=== PATIENT | male | born 1975 | race Caucasian/White ===

== ENCOUNTER 2016-04-24 16:36 | Emergency (ER) | payer BC ==
[~2016-04-24 16:36] MED LIST: AMLO10TA2 PO; BISO5TAB5 PO; CIPR500T89 PO; ENAL10TA2 PO; ENAL5TAB PO; FLAG500T PO; FURO1TAB15 PO; FURO20TA2 PO; JANU100T PO; LASI20TA PO; LORT5TAB PO; METF1000 PO; METF500T PO; NORCOTAB PO; SERT-141 PO; TYLE500T78 PO; VALS1TAB47 PO
[2016-04-24] MEDS ORDERED: fentaNYL 100 MCG/2 ML INJECTION (J3010) As Ordered ONE (18:10)
[2016-04-24 18:21] LABS: BASO % 0.5 % (0.0-1.0); EOS # 0.2 K/mm3 (0.0-0.50); EOS % 2.2 % (0.0-3.0); LARGE UNSTAINED CELL # 0.2 K/mm3 (0.0-0.4); LARGE UNSTAINED CELL % 1.9 % (0.0-4.0); LYMPH # 1.5 K/mm3 (1.5-4.5); LYMPH % 14.4 % (24.0-44.0); MEAN CORPUSCULAR HEMOGLOBIN 29.3 pg (27.0-33.0); MEAN CORPUSCULAR HGB CONC 32.7 g/dl (32.0-36.5); MEAN CORPUSCULAR VOLUME 89.3 fl (80.0-96.0); MONO # 0.6 K/mm3 (0.0-0.8); MONO % 5.4 % (0.0-5.0); NEUTROPHILS # 8.1 K/mm3 (1.8-7.7); NEUTROPHILS % 75.6 % (36.0-66.0); PLATELET COUNT, AUTOMATED 327 k/mm3 (150-450); RED CELL DISTRIBUTION WIDTH 13.3 % (11.5-14.5); WHITE BLOOD COUNT 10.7 K/mm3 (4.0-10.0)
[2016-04-24 18:47] LABS: ALBUMIN 3.9 GM/DL (3.2-5.2); ALBUMIN/GLOBULIN RATIO 1.03 (1.00-1.93); ALKALINE PHOSPHATASE 58 U/L (45-117); ALT/SGPT 46 U/L (12-78); ANION GAP 8 MEQ/L (8-16); AST/SGOT 39 U/L (15-37); BILIRUBIN,DIRECT < 0.1 MG/DL (0.0-0.2); BILIRUBIN,TOTAL 0.3 MG/DL (0.2-1.0); BLOOD UREA NITROGEN 14 MG/DL (7-18); CALCIUM LEVEL 9.1 MG/DL (8.5-10.1); CARBON DIOXIDE LEVEL 28 MEQ/L (21-32); CHLORIDE LEVEL 103 MEQ/L (98-107); CREATININE FOR GFR 0.84 MG/DL (0.70-1.30); GLOMERULAR FILTRATION RATE > 60.0 (>60); GLUCOSE, FASTING 113 MG/DL (70-105); POTASSIUM SERUM 4.9 MEQ/L (3.5-5.1); SODIUM LEVEL 139 MEQ/L (136-145); TOTAL PROTEIN 7.7 GM/DL (6.4-8.2)
--- NOTE | 2016-04-24 20:01 | REP ---
Clinical: Hypertension and chest pain. Technique: PA and lateral. Comparison: 02/17/2016. Findings: Stable cardiomegaly is appreciated. Lung meng are clear without acute consolidation, effusion, or pneumothorax. Skeletal structures intact. Impression: Stable cardiomegaly. No acute pleuroparenchymal process identified. Signed by Julian Sandoval MD 04/24/2016 07:52 P
[2016-04-24] MEDS ORDERED: NORCO 5/325MG TABLET (BULK) As Ordered ONE (20:22)
--- NOTE | 2016-04-24 20:32 | EDDOCDS ---
Nurse's Notes [facility] Name: Elgin Alba Age: 41 yrs Sex: Male : 1975 Arrival Date: 04/24/2016 Time: 16:36 Bed 17 Private MD: Philly Whipple E Diagnosis: Umbilical hernia without obstruction or gangrene Presentation: 04/24 16:46 Presenting complaint: Patient states: sent here from his PMD for macerated intestines. srm had CT done today. symptoms of mid abdominal pain for 3-5 weeks. diarrhea no n/v. Adult Sepsis Screening: The patient does not have new or worsening altered mentation. Patient's respiratory rate is less than 22. Systolic blood pressure is greater than 100. Patient has a qSOFA score of 0- Negative Sepsis Screen. Suicide/Homicide risk assessment- the patient denies having any suicidal and/or homicidal ideations and does not present with any other emotional, behavioral or mental health complaints. 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 Transition of care: patient was received from a primary care office; dr whipple. 16:46 Method Of Arrival: Walkin/Carried/Asstd [facility] 16:46 Acuity: BRITTANY Level 3 [facility] 16:53 Presenting complaint: Patient states: incarcerated hernia. [facility] 16:56 Presenting complaint: had cereal bar and juice box 2 hours ago. [facility] Triage Assessment: 16:53 General: Appears in no apparent distress, Behavior is appropriate for age, cooperative. srm Pain: Pain currently is 8 out of 10 on a pain scale. 16:54 HIV screening NA for this visit Offered previously. srm Historical: - Allergies: Morphine (leg swelling); - Home Meds: 1. Sertraline 150mg daily (Last dose: 04/24/2016 10:30) 2. valsartan 160 mg oral tab once daily (Last dose: 04/24/2016 10:30) 3. amlodipine 10 mg Oral tab once daily (Last dose: 04/24/2016 10:30) 4. furosemide 80 mg Oral tab 2 times per day (Last dose: 04/23/2016 19:00) 5. Januvia 100 mg oral tab 1 tab once daily (Last dose: 04/24/2016 10:30) 6. fexofenadine 180 mg Oral tab 1 tab once daily (Last dose: 04/24/2016 10:30) 7. acetaminophen 500 mg Oral tbef 1,000 mg daily 8. bisoprolol fumarate 5 mg oral tab once daily (Last dose: 04/24/2016 10:30) 9. oxycodone-acetaminophen 5-325 mg Oral tab every 8 hours prn (Last dose: 04/23/2016 19:00) - PMHx: Diabetes - NIDDM: controlled; Hypertension; CHF; Umbilical hernia; - PSHx: Hernia repair; - Social history: Smoking status: Patient states was never smoker of tobacco. No barriers to communication noted, The patient speaks fluent [place], Speaks appropriately for age. - Family history: Not pertinent. - : The pt / caregiver states he / she is not on anticoagulants. Home medication list is obtained from the patient. - Exposure Risk Screening:: None identified. Screenin:06 Screening information is obtained from the patient. Fall risk: No risks identified. bcj Assistance ADL's: requires no assistance with activities of daily living. Abuse/DV Screen: The patient / caregiver reports he/she is: not in a situation that causes fear, pain or injury. Nutritional screening: No deficits noted. Advance Directives: Currently, there is no health care proxy. home support is adequate. Assessment: 18:06 General: Appears in no apparent distress, Behavior is appropriate for age, cooperative. bcj Pain: Location: umbilical area, right upper quadrant and left upper quadrant Pain currently is 7 out of 10 on a pain scale. Neurological: Level of Consciousness is awake, alert, Oriented to person, place, time. Cardiovascular: Capillary refill < 3 seconds. Respiratory: Airway is patent Respiratory effort is even, unlabored. GI: Abdomen is non- distended obese, Bowel sounds present X 4 quads. Abd is soft X 4 quads Abd is tender to palpation in abdomen diffusely Reports diarrhea, upper abdominal pain. Derm: Skin is pink, warm & dry. 20:29 General: Appears in no apparent distress, comfortable, Behavior is appropriate for age, nn1 cooperative. Neurological: Level of Consciousness is awake, alert, Oriented to person, place, time. Respiratory: Airway is patent Respiratory effort is even, unlabored. Derm: Skin is pink, warm & dry. Vital Signs: 16:38 BP 159 / 80; Pulse 97; Resp 18 S; Temp 98.0; Pulse Ox 99% on R/A; Weight 133.36 kg (R); dd6 Height 5 ft. 3 in. (160.02 cm) (R); 20:12 BP 143 / 79; Pulse 83; Resp 20; Temp 98.3(TE); Pulse Ox 96% on R/A; Pain 6/10; ls3 16:38 Body Mass Index 52.08 (133.36 kg, 160.02 cm) dd6 Vitals: 16:38 Log In Time: April 24, 2016 at 16:36. dd6 ED Course: 16:37 Patient visited by Tre Gonzalez PCA. dd6 16:37 Philly Whipple is Private Physician. dd6 16:37 Patient moved to Waiting dd6 16:39 Patient moved to Pre RCE dd6 16:47 Triage Initiated srm 17:09 Aylin Crow,RN is Primary Nurse. jb5 17:09 Patient moved to 17 jb5 17:40 Julia Chow FNP is PHCP. le 18:06 The patient / caregiver is instructed regarding the plan of care and ED course. Patient yoon has correct armband on for positive identification. Placed in gown. Bed in low position. Call light in reach. Side rails up X2. 18:06 Inserted peripheral IV: 20gauge IV in left antecubital area and blood collected. bcj Patient tolerated the procedure well. 18:08 Patient visited by Garrison Appiah, CIARA. bcj 18:16 Patient visited by Julia Chow FNP. le 18:16 Patient visited by Julia Chow FNP. le 18:46 Patient visited by Tim Noble PCA. jlf 19:10 Patient visited by Rene De La Torre PCA. jmv 19:10 EKG done. (by ED staff). Reviewed by Julia ARMANDO. jmv 19:53 Patient visited by Venus Sullivan RN. nn1 20:04 Chest, 2 View (pa\E\lat) Returned. EDMS 20:06 Chucky Boone MD is Referral Physician. le 20:13 Patient visited by Rhona Duarte PCA. ls3 20:20 [facility] [place] was scanned into [employer] and attached to record. zo 20:31 No procedures done that require assistance. nn1 Administered Medications: 18:14 Drug: NS 0.9% 1000 ml [sodium chloride 0.9 % injection syringe] Route: IV; Rate: 100 pml mL/hr; Site: left antecubital; 18:14 Drug: fentaNYL (PF) 50 mcg [fentanyl (PF) 50 mcg/mL injection solution (1 mL)] Route: pml IVP; Site: left antecubital; Order Results: Lab Order: Basic Metabolic Profile; SPEC'M 04/24/16 18:04 Test: GLUCOSE, FASTING; Value: 113; Range: 70-105; Abnormal: Above high normal; Units: MG/DL; Status: F Test: BLOOD UREA NITROGEN; Value: 14; Range: 7-18; Units: MG/DL; Status: F Test: CREATININE FOR GFR; Value: 0.84; Range: 0.70-1.30; Units: MG/DL; Status: F Test: GLOMERULAR FILTRATION RATE; Value: > 60.0; Range: >60; Status: F Test: SODIUM LEVEL; Value: 139; Range: 136-145; Units: MEQ/L; Status: F Test: POTASSIUM SERUM; Value: 4.9; Range: 3.5-5.1; Units: MEQ/L; Status: F Test: CHLORIDE LEVEL; Value: 103; Range: 98-107; Units: MEQ/L; Status: F Test: CARBON DIOXIDE LEVEL; Value: 28; Range: 21-32; Units: MEQ/L; Status: F Test: ANION GAP; Value: 8; Range: 8-16; Units: MEQ/L; Status: F Test: CALCIUM LEVEL; Value: 9.1; Range: 8.5-10.1; Units: MG/DL; Status: F Test Note: ; Units are mL/min/1.73 m2 Chronic Kidney Disease Staging per NKF: Stage I & II GFR >=60 Normal to Mildly Decreased Stage III GFR 30-59 Moderately Decreased Stage IV GFR 15-29 Severely Decreased Stage V GFR <15 Very Little GFR Left ESRD GFR <15 on QUALITY AUDIT REPRESENTATIVE Lab Order: CBC with Diff; SPEC'M 04/24/16 18:04 Test: WHITE BLOOD COUNT; Value: 10.7; Range: 4.0-10.0; Abnormal: Above high normal; Units: K/mm3; Status: F Test: RED BLOOD COUNT; Value: 4.34; Range: 4.30-6.10; Units: M/mm3; Status: F Test: HEMOGLOBIN; Value: 12.7; Range: 14.0-18.0; Abnormal: Below low normal; Units: g/dl; Status: F Test: HEMATOCRIT; Value: 38.8; Range: 42.0-52.0; Abnormal: Below low normal; Units: %; Status: F Test: MEAN CORPUSCULAR VOLUME; Value: 89.3; Range: 80.0-96.0; Units: fl; Status: F Test: MEAN CORPUSCULAR HEMOGLOBIN; Value: 29.3; Range: 27.0-33.0; Units: pg; Status: F Test: MEAN CORPUSCULAR HGB CONC; Value: 32.7; Range: 32.0-36.5; Units: g/dl; Status: F Test: RED CELL DISTRIBUTION WIDTH; Value: 13.3; Range: 11.5-14.5; Units: %; Status: F Test: PLATELET COUNT, AUTOMATED; Value: 327; Range: 150-450; Units: k/mm3; Status: F Test: NEUTROPHILS %; Value: 75.6; Range: 36.0-66.0; Abnormal: Above high normal; Units: %; Status: F Test: LYMPH %; Value: 14.4; Range: 24.0-44.0; Abnormal: Below low normal; Units: %; Status: F Test: MONO %; Value: 5.4; Range: 0.0-5.0; Abnormal: Above high normal; Units: %; Status: F Test: EOS %; Value: 2.2; Range: 0.0-3.0; Units: %; Status: F Test: BASO %; Value: 0.5; Range: 0.0-1.0; Units: %; Status: F Test: LARGE UNSTAINED CELL %; Value: 1.9; Range: 0.0-4.0; Units: %; Status: F Test: NEUTROPHILS #; Value: 8.1; Range: 1.8-7.7; Abnormal: Above high normal; Units: K/mm3; Status: F Test: LYMPH #; Value: 1.5; Range: 1.5-4.5; Units: K/mm3; Status: F Test: MONO #; Value: 0.6; Range: 0.0-0.8; Units: K/mm3; Status: F Test: EOS #; Value: 0.2; Range: 0.0-0.50; Units: K/mm3; Status: F Test: BASO #; Value: 0.0; Range: 0.0-0.2; Units: K/mm3; Status: F Test: LARGE UNSTAINED CELL #; Value: 0.2; Range: 0.0-0.4; Units: K/mm3; Status: F Lab Order: Lipase; SPEC'M 04/24/16 18:04 Test: LIPASE; Value: 1368; Range: 73-393; Abnormal: Above high normal; Units: U/L; Status: F Lab Order: Liver Profile; SPEC' 04/24/16 18:04 Test: AST/SGOT; Value: 39; Range: 15-37; Abnormal: Above high normal; Units: U/L; Status: F Test: ALT/SGPT; Value: 46; Range: 12-78; Units: U/L; Status: F Test: ALKALINE PHOSPHATASE; Value: 58; Range: 45-117; Units: U/L; Status: F Test: BILIRUBIN,TOTAL; Value: 0.3; Range: 0.2-1.0; Units: MG/DL; Status: F Test: BILIRUBIN,DIRECT; Value: < 0.1; Range: 0.0-0.2; Units: MG/DL; Status: F Test: TOTAL PROTEIN; Value: 7.7; Range: 6.4-8.2; Units: GM/DL; Status: F Test: ALBUMIN; Value: 3.9; Range: 3.2-5.2; Units: GM/DL; Status: F Test: ALBUMIN/GLOBULIN RATIO; Value: 1.03; Range: 1.00-1.93; Status: F Lab Order: Lactic Acid (Velarde tube on ice); SPEC'M 04/24/16 18:04 Test: LACTIC ACID LEVEL, LACTATE; Value: 2.0; Range: 0.4-2.0; Units: MMOL/L; Status: F Radiology Order: Chest, 2 View (pa\E\lat) Test: Chest, 2 View (pa\E\lat) REASON FOR EXAMINATION: hx HTN, CHF; Clinical: Hypertension and chest pain.; ; Technique: PA and lateral.; ; Comparison: 02/17/2016.; ; Findings:; Stable cardiomegaly is appreciated. Lung meng are clear without acute; consolidation, effusion, or pneumothorax. Skeletal structures intact.; ; Impression:; Stable cardiomegaly. No acute pleuroparenchymal process identified.; ; ; Signed by; Julian Sandoval MD 04/24/2016 07:52 P; Outcome: 20:06 Discharge ordered by Provider. le 20:30 Discharge Assessment: Patient awake, alert and oriented x 3. No cognitive and/or nn1 functional deficits noted. Patient verbalized understanding of disposition instructions. 20:31 Discharge Assessment: patient administered narcotics - yes. Pt provided with safe nn1 discharge. The following High Risk Discharge criteria are identified: None. Discharged to home ambulatory. Condition: good Condition: stable. Discharge instructions given to patient, Instructed on discharge instructions, follow up and referral plans. medication usage, no driving heavy equipment, Demonstrated understanding of instructions, medications, Pt was receptive of discharge instructions/ teaching. Prescriptions given X 1, Work note provided to patient. No special radiology studies were completed. Property :Personal belongings accompany Pt. 20:31 Patient left the ED. nn1 Signatures: Dispatcher [employer] EDGarrison Morales, RN Christie Kang RN RN Viviana Salinas, METAL LOADER METAL LOADER jb5 Nick Gandhi Lisa, PAPER GUILLOTINE OPERATOR PAPER GUILLOTINE OPERATOR Tre Lassiter, METAL LOADER METAL LOADER dd6 Aylin Crow,RN RN iTm Oropeza, METAL LOADER METAL LOADER Venus KumarRN RN nn1 Rhona Duarte, METAL LOADER METAL LOADER ls3 Rene De La Torre, METAL LOADER METAL LOADER jmv MTDD
--- NOTE | 2016-04-24 20:33 | EDDOCDS ---
Physician Documentation [facility] Name: Elgin Alba Age: 41 yrs Sex: Male : 1975 Arrival Date: 04/24/2016 Time: 16:36 Bed 17 Private MD: Philly Gamez E Disposition: 04/24/16 20:06 Discharged to Home/Self Care. Impression: Umbilical hernia without obstruction or gangrene. - Condition is Stable. - Discharge Instructions: Hernia. - Prescriptions for Bronson 5- 325 mg Oral Tablet - take 1 tablet by ORAL route every 6 hours As needed MDD: 4 tabs; 20 tablet. - Medication Reconciliation, Local Pharmacy Hours form. - Follow up: Chucky Boone MD; When: Call to arrange an appointment; Reason: Recheck today's complaints, Continuance of care. - Problem is an ongoing problem. - Symptoms are unchanged. - Notes: Call Dr Boone's office, on Wednesday, to schedule follow-up appointment Return to the ED for worsening pain, especially if vomiting or fever develops Historical: - Allergies: Morphine (leg swelling); - Home Meds: 1. Sertraline 150mg daily (Last dose: 04/24/2016 10:30) 2. valsartan 160 mg oral tab once daily (Last dose: 04/24/2016 10:30) 3. amlodipine 10 mg Oral tab once daily (Last dose: 04/24/2016 10:30) 4. furosemide 80 mg Oral tab 2 times per day (Last dose: 04/23/2016 19:00) 5. Januvia 100 mg oral tab 1 tab once daily (Last dose: 04/24/2016 10:30) 6. fexofenadine 180 mg Oral tab 1 tab once daily (Last dose: 04/24/2016 10:30) 7. acetaminophen 500 mg Oral tbef 1,000 mg daily 8. bisoprolol fumarate 5 mg oral tab once daily (Last dose: 04/24/2016 10:30) 9. oxycodone-acetaminophen 5-325 mg Oral tab every 8 hours prn (Last dose: 04/23/2016 19:00) - PMHx: Diabetes - NIDDM: controlled; Hypertension; CHF; Umbilical hernia; - PSHx: Hernia repair; - Social history: Smoking status: Patient states was never smoker of tobacco. No barriers to communication noted, The patient speaks fluent Dive[place], Speaks appropriately for age. - Family history: Not pertinent. - : The pt / caregiver states he / she is not on anticoagulants. Home medication list is obtained from the patient. - Exposure Risk Screening:: None identified. Vital Signs: 04/24 16:38 BP 159 / 80; Pulse 97; Resp 18 S; Temp 98.0; Pulse Ox 99% on R/A; Weight 133.36 kg / dd6 294.01 lbs (R); Height 5 ft. 3 in. (160.02 cm) (R); 20:12 BP 143 / 79; Pulse 83; Resp 20; Temp 98.3(TE); Pulse Ox 96% on R/A; Pain 6/10; ls3 16:38 Body Mass Index 52.08 (133.36 kg, 160.02 cm) dd6 MDM: 17:41 NS 0.9% 1000 ml IV at 100 mL/hr continuous ordered. le 17:41 IV Saline Lock ordered. le 17:41 Undress patient appropriately for examination ordered. le 17:42 Basic Metabolic Profile Ordered. EDMS 17:42 CBC with Diff Ordered. EDMS 17:42 Lipase Ordered. EDMS 17:42 Liver Profile Ordered. EDMS 17:42 Lactic Acid (Velarde tube on ice) Ordered. EDMS 17:42 NOTHING BY MOUTH+DIET ordered. EDMS 18:14 fentaNYL (PF) 50 mcg IVP once ordered. pml 18:38 CBC with Diff Reviewed. le 18:47 Lactic Acid (Velarde tube on ice) Reviewed. le 18:49 BED REQUEST+ADM ordered. EDMS 18:51 ECG WITH READING ER PHYS+CARDIAG ordered. EDMS 18:51 Basic Metabolic Profile Reviewed. le 18:51 Lipase Reviewed. le 18:51 Liver Profile Reviewed. le 18:52 Chest, 2 View (pa\E\lat) Ordered. EDMS 20:07 HYDROcodone-acetaminophen 4 pack- 5 mg-325 mg 1 packets PO Per package directions; le Dispense with patient. 1 po q4h prn for pain ordered. 20:18 Financial registration complete. zo 20:20 [facility] [place] Payment Agreement was scanned into [employer] and attached to record. zo Administered Medications: 18:14 Drug: NS 0.9% 1000 ml [sodium chloride 0.9 % injection syringe] Route: IV; Rate: 100 pml mL/hr; Site: left antecubital; 18:14 Drug: fentaNYL (PF) 50 mcg [fentanyl (PF) 50 mcg/mL injection solution (1 mL)] Route: pml IVP; Site: left antecubital; Signatures: Dispatcher [employer] Garrison Phoenix RN RN bcj Michelson, Staci, RN RN srm Olin, Zoeann zo Westcott, Lisa, Aylin Tena RN RN pml Nunez, Nikkole, RN RN nn1 The chart was reviewed and I authenticate all verbal orders and agree with the evaluation and treatment provided.Attachments: 20:20 [facility] Payment Agreement zo MTDD
--- NOTE | 2016-04-25 05:54 | ECGEPIP ---
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
--- NOTE | 2016-04-25 07:44 | ER ---
DATE OF CONSULTATION: 04/24/2016 Consult regarding possible incarcerated recurrent umbilical hernia. HISTORY OF PRESENT ILLNESS: Mr. Alba is a 41-year-old gentleman. He is morbidly obese; he has a body mass index (BMI) of 56. He was sent by his primary care doctor who he saw the day before. He was complaining about a month history of ongoing pain around his umbilicus. This is worse with movement, bending, lifting. He denies any associated nausea or vomiting. He is tolerating food. He is having some mild loose stools the past week or so. No fevers or chills reported. His primary care doctor ordered a CT scan of the abdomen and pelvis which was done at [facility] today. The radiologist reading this read it as an incarcerated, possible strangulated umbilical hernia; thus, his primary care doctor sent him to the emergency room department to be evaluated. I was called in with these findings. On talking to him, he reports the pain has been the same for the past month. No exacerbation of the pain recently. He actually feels good now, though he did get 100 mcg of Fentanyl, but he says he was on his way to work, he does not feel sick, and he was surprised that his doctor called him and told him that he needed an emergency surgery tonight. ALLERGIES: The patient reports problems with MORPHINE giving him bilateral leg swelling. HOME MEDICATIONS: - amlodipine 10 mg tablet daily - bisoprolol 5 mg tablet daily - furosemide 80 mg tablet twice a day - metformin 1000 mg by mouth twice a day - sertraline 50 mg by mouth nightly - Januvia 100 mg tablet daily - valsartan 160 mg by mouth nightly PAST MEDICAL HISTORY: Includes: 1. Congestive heart failure, diastolic dysfunction. 2. Morbid obesity. 3. Diabetes. 4. Hypertension. 5. Sleep apnea. The patient was tried on continuous positive airway pressure (CPAP) but the patient was not able to tolerate it. PAST SURGICAL HISTORY: Includes: Umbilical hernia repair with Dr. Henderson in May 2015 PHYSICAL EXAMINATION: The patient is seen initially sitting up on the bed, laying down, appears fairly comfortable. No acute distress. He is pleasant and cooperative. He does not appear to be in any acute distress nor any discomfort. As mentioned, the patient is morbidly obese. Skin is warm and dry. Normocephalic, atraumatic. [place] palpebral conjunctivae. Anicteric sclerae. Lips appear moist. Neck is short but supple. No obvious jugular venous distension. Lungs sounds are clear to auscultation bilaterally. No wheezing appreciated. Heart: Rate and rhythm are regular with no murmurs. Abdomen is markedly rounded, soft, positive diastasis in the upper abdomen. Curvilinear incision on the superior portion of the umbilicus. Just above the umbilicus is an area of thinning, slight skin darkening where there is some hardening from most likely the presence of the mesh getting pushed out into the recurrent hernia. This is minimally tender on palpation. There are no signs of inflammation or induration. No rebound or guarding. Nontender anywhere else. Nontender at the epigastric area. Nontender at the right upper quadrant area. LABORATORY: White cell count is 10.7, hemoglobin 12.7, hematocrit 38.8, neutrophils 76%. Chemistry: Sodium 139, potassium 4.9, chloride is 103, CO2 of 28, BUN of 14, creatinine 0.84, glucose is 113, lactic acid 2. LFTs: Total bilirubin 0.3, direct bilirubin less than 0.1, AST 39, ALT 46, alkaline phosphatase 58, lipase is 1368, which is elevated. IMAGING STUDIES: A chest x-ray was done, showing no acute disease. He had a CT scan of the abdomen and pelvis done at [facility]; we only have the reading. I have no access to the images. This was read as a hernia involving soft tissue and small bowel, possible incarceration, possible strangulation. This does not correlate with the examination, and the appearance of the patient. I did review of CT scan of the abdomen and pelvis that was done at our hospital in February 2016 when he presented with diverticulitis. He did have a recurrent hernia containing dilated thickened small bowel loop in its lumen with surrounding fat stranding. I think more the surrounding fat stranding is from the mesh getting pushed out into the hernia wall rather than acute inflammation involving the bowel. IMPRESSION: Clinically incarcerated recurrent umbilical hernia. This contains bowel. I do not see any evidence for strangulation or incarceration of the bowel. I think the bowel itself is adhered probably to the mesh. Overall the patient does not look sick, does not look to have an incarcerated bowel into his chronic hernia. I do not think this needs an emergency repair. I did consult the patient that this needs to be repaired since it involves the bowel. I will see him in my clinic next week and schedule him for an elective hernia repair. I think this is best done, given the patient's body habitus, laparoscopically to enable us to place a wider mesh to the defect. The patient is in agreement with the plan. He will contact my clinic Wednesday, and I will see him next week in my clinic.
--- NOTE | 2016-04-26 21:32 | EDDOCDS ---
Physician Documentation [facility] Name: Elgin Alba Age: 41 yrs Sex: Male : 1975 Arrival Date: 04/24/2016 Time: 16:36 Bed 17 Private MD: Philly Gamez E Disposition: 04/24/16 20:06 Discharged to Home/Self Care. Impression: Umbilical hernia without obstruction or gangrene. - Condition is Stable. - Discharge Instructions: Hernia. - Prescriptions for [place] 5- 325 mg Oral Tablet - take 1 tablet by ORAL route every 6 hours As needed MDD: 4 tabs; 20 tablet. - Medication Reconciliation, Local Pharmacy Hours form. - Follow up: Chucky Boone MD; When: Call to arrange an appointment; Reason: Recheck today's complaints, Continuance of care. - Problem is an ongoing problem. - Symptoms are unchanged. - Notes: Call Dr Boone's office, on Wednesday, to schedule follow-up appointment Return to the ED for worsening pain, especially if vomiting or fever develops Historical: - Allergies: Morphine (leg swelling); - Home Meds: 1. Sertraline 150mg daily (Last dose: 04/24/2016 10:30) 2. valsartan 160 mg oral tab once daily (Last dose: 04/24/2016 10:30) 3. amlodipine 10 mg Oral tab once daily (Last dose: 04/24/2016 10:30) 4. furosemide 80 mg Oral tab 2 times per day (Last dose: 04/23/2016 19:00) 5. Januvia 100 mg oral tab 1 tab once daily (Last dose: 04/24/2016 10:30) 6. fexofenadine 180 mg Oral tab 1 tab once daily (Last dose: 04/24/2016 10:30) 7. acetaminophen 500 mg Oral tbef 1,000 mg daily 8. bisoprolol fumarate 5 mg oral tab once daily (Last dose: 04/24/2016 10:30) 9. oxycodone-acetaminophen 5-325 mg Oral tab every 8 hours prn (Last dose: 04/23/2016 19:00) - PMHx: Diabetes - NIDDM: controlled; Hypertension; CHF; Umbilical hernia; - PSHx: Hernia repair; - Social history: Smoking status: Patient states was never smoker of tobacco. No barriers to communication noted, The patient speaks fluent Amharic, Speaks appropriately for age. - Family history: Not pertinent. - : The pt / caregiver states he / she is not on anticoagulants. Home medication list is obtained from the patient. - Exposure Risk Screening:: None identified. Vital Signs: 04/24 16:38 BP 159 / 80; Pulse 97; Resp 18 S; Temp 98.0; Pulse Ox 99% on R/A; Weight 133.36 kg / dd6 294.01 lbs (R); Height 5 ft. 3 in. (160.02 cm) (R); 20:12 BP 143 / 79; Pulse 83; Resp 20; Temp 98.3(TE); Pulse Ox 96% on R/A; Pain 6/10; ls3 16:38 Body Mass Index 52.08 (133.36 kg, 160.02 cm) dd6 MDM: 17:41 NS 0.9% 1000 ml IV at 100 mL/hr continuous ordered. le 17:41 IV Saline Lock ordered. le 17:41 Undress patient appropriately for examination ordered. le 17:42 Basic Metabolic Profile Ordered. EDMS 17:42 CBC with Diff Ordered. EDMS 17:42 Lipase Ordered. EDMS 17:42 Liver Profile Ordered. EDMS 17:42 Lactic Acid (Velarde tube on ice) Ordered. EDMS 17:42 NOTHING BY MOUTH+DIET ordered. EDMS 18:14 fentaNYL (PF) 50 mcg IVP once ordered. pml 18:38 CBC with Diff Reviewed. le 18:47 Lactic Acid (Velarde tube on ice) Reviewed. le 18:49 BED REQUEST+ADM ordered. EDMS 18:51 ECG WITH READING ER PHYS+CARDIAG ordered. EDMS 18:51 Basic Metabolic Profile Reviewed. le 18:51 Lipase Reviewed. le 18:51 Liver Profile Reviewed. le 18:52 Chest, 2 View (pa\E\lat) Ordered. EDMS 20:07 HYDROcodone-acetaminophen 4 pack- 5 mg-325 mg 1 packets PO Per package directions; le Dispense with patient. 1 po q4h prn for pain ordered. 20:18 Financial registration complete. zo 20:20 [facility] [place] was scanned into [employer] and attached to record. zo 04/25 08:14 T-Sheet-- Draft Copy was scanned into [employer] and attached to record. [place] 12:08 ECG/EKG was scanned into [employer] and attached to record. gb 12:08 T-Sheet-- Draft Copy was scanned into [employer] and attached to record. gb Administered Medications: 04/24 18:14 Drug: NS 0.9% 1000 ml [sodium chloride 0.9 % injection syringe] Route: IV; Rate: 100 pml mL/hr; Site: left antecubital; 18:14 Drug: fentaNYL (PF) 50 mcg [fentanyl (PF) 50 mcg/mL injection solution (1 mL)] Route: pml IVP; Site: left antecubital; 20:20 Drug: HYDROcodone-acetaminophen 4 pack- 1 packets [hydrocodone 5 mg-acetaminophen 325 nn1 mg tablet (1 tabs)] {Co-Signature: dorota (Eric Bradley RN).} Route: PO; Signatures: Dispatcher [employer] EDGarrison Morales RN Chrisite Kang RN CIARA srm Stan, Fela, Reg Reg gb Nick Gandhi Lisa, HOME CARE SPECIALIST Aylin Griffin RN RN pml Nunez, Nikkole, RN RN nn1 Lela Aguirre [place] Eric raya The chart was reviewed and I authenticate all verbal orders and agree with the evaluation and treatment provided.Attachments: 20:20 [facility] Payment Agreement zo 12:08 ECG/EKG gb 12:08 T-Sheet-- Draft Copy gb Chart Complete MTDD
--- NOTE | 2016-04-26 21:32 | EDDOCDS ---
Physician Documentation [facility] Name: Elgin Alba Age: 41 yrs Sex: Male : 1975 Arrival Date: 04/24/2016 Time: 16:36 Bed 17 Private MD: Philly Gamez E Disposition: 04/24/16 20:06 Discharged to Home/Self Care. Impression: Umbilical hernia without obstruction or gangrene. - Condition is Stable. - Discharge Instructions: Hernia. - Prescriptions for [place] 5- 325 mg Oral Tablet - take 1 tablet by ORAL route every 6 hours As needed MDD: 4 tabs; 20 tablet. - Medication Reconciliation, Local Pharmacy Hours form. - Follow up: Chucky Boone MD; When: Call to arrange an appointment; Reason: Recheck today's complaints, Continuance of care. - Problem is an ongoing problem. - Symptoms are unchanged. - Notes: Call Dr Boone's office, on Wednesday, to schedule follow-up appointment Return to the ED for worsening pain, especially if vomiting or fever develops Historical: - Allergies: Morphine (leg swelling); - Home Meds: 1. Sertraline 150mg daily (Last dose: 04/24/2016 10:30) 2. valsartan 160 mg oral tab once daily (Last dose: 04/24/2016 10:30) 3. amlodipine 10 mg Oral tab once daily (Last dose: 04/24/2016 10:30) 4. furosemide 80 mg Oral tab 2 times per day (Last dose: 04/23/2016 19:00) 5. Januvia 100 mg oral tab 1 tab once daily (Last dose: 04/24/2016 10:30) 6. fexofenadine 180 mg Oral tab 1 tab once daily (Last dose: 04/24/2016 10:30) 7. acetaminophen 500 mg Oral tbef 1,000 mg daily 8. bisoprolol fumarate 5 mg oral tab once daily (Last dose: 04/24/2016 10:30) 9. oxycodone-acetaminophen 5-325 mg Oral tab every 8 hours prn (Last dose: 04/23/2016 19:00) - PMHx: Diabetes - NIDDM: controlled; Hypertension; CHF; Umbilical hernia; - PSHx: Hernia repair; - Social history: Smoking status: Patient states was never smoker of tobacco. No barriers to communication noted, The patient speaks fluent Bulgarian, Speaks appropriately for age. - Family history: Not pertinent. - : The pt / caregiver states he / she is not on anticoagulants. Home medication list is obtained from the patient. - Exposure Risk Screening:: None identified. Vital Signs: 04/24 16:38 BP 159 / 80; Pulse 97; Resp 18 S; Temp 98.0; Pulse Ox 99% on R/A; Weight 133.36 kg / dd6 294.01 lbs (R); Height 5 ft. 3 in. (160.02 cm) (R); 20:12 BP 143 / 79; Pulse 83; Resp 20; Temp 98.3(TE); Pulse Ox 96% on R/A; Pain 6/10; ls3 16:38 Body Mass Index 52.08 (133.36 kg, 160.02 cm) dd6 MDM: 17:41 NS 0.9% 1000 ml IV at 100 mL/hr continuous ordered. le 17:41 IV Saline Lock ordered. le 17:41 Undress patient appropriately for examination ordered. le 17:42 Basic Metabolic Profile Ordered. EDMS 17:42 CBC with Diff Ordered. EDMS 17:42 Lipase Ordered. EDMS 17:42 Liver Profile Ordered. EDMS 17:42 Lactic Acid (Velarde tube on ice) Ordered. EDMS 17:42 NOTHING BY MOUTH+DIET ordered. EDMS 18:14 fentaNYL (PF) 50 mcg IVP once ordered. pml 18:38 CBC with Diff Reviewed. le 18:47 Lactic Acid (Velarde tube on ice) Reviewed. le 18:49 BED REQUEST+ADM ordered. EDMS 18:51 ECG WITH READING ER PHYS+CARDIAG ordered. EDMS 18:51 Basic Metabolic Profile Reviewed. le 18:51 Lipase Reviewed. le 18:51 Liver Profile Reviewed. le 18:52 Chest, 2 View (pa\E\lat) Ordered. EDMS 20:07 HYDROcodone-acetaminophen 4 pack- 5 mg-325 mg 1 packets PO Per package directions; le Dispense with patient. 1 po q4h prn for pain ordered. 20:18 Financial registration complete. zo 20:20 [facility] [place] Payment Agreement was scanned into [employer] and attached to record. zo 04/25 08:14 T-Sheet-- Draft Copy was scanned into [employer] and attached to record. [facility] 12:08 ECG/EKG was scanned into [employer] and attached to record. gb 12:08 T-Sheet-- Draft Copy was scanned into [employer] and attached to record. gb Administered Medications: 04/24 18:14 Drug: NS 0.9% 1000 ml [sodium chloride 0.9 % injection syringe] Route: IV; Rate: 100 pml mL/hr; Site: left antecubital; 18:14 Drug: fentaNYL (PF) 50 mcg [fentanyl (PF) 50 mcg/mL injection solution (1 mL)] Route: pml IVP; Site: left antecubital; 20:20 Drug: HYDROcodone-acetaminophen 4 pack- 1 packets [hydrocodone 5 mg-acetaminophen 325 nn1 mg tablet (1 tabs)] {Co-Signature: dorota (Eric Bradley RN).} Route: PO; Signatures: Dispatcher [employer] EDGarrison Morales RN Christie Kang RN CIARA srm Stan, Fela, Reg Reg gb Nick Gandhi Lisa, PHYSICIANS AND SURGEONS Aylin Griffin RN RN pml Nunez, Nikkole, RN RN nn1 Lela Aguirre [facility] Eric raya The chart was reviewed and I authenticate all verbal orders and agree with the evaluation and treatment provided.Attachments: 20:20 [facility] Payment Agreement zo 12:08 ECG/EKG gb 12:08 T-Sheet-- Draft Copy gb Chart Complete MTDD
--- NOTE | 2016-04-26 21:32 | EDDOCDS ---
Nurse's Notes [facility] Name: Sebastian Mcmahon Age: 41 yrs Sex: Male : 1975 Arrival Date: 04/24/2016 Time: 16:36 Bed 17 Private MD: Philly Whipple E Diagnosis: Umbilical hernia without obstruction or gangrene Presentation: 04/24 16:46 Presenting complaint: Patient states: sent here from his PMD for macerated intestines. srm had CT done today. symptoms of mid abdominal pain for 3-5 weeks. diarrhea no n/v. Adult Sepsis Screening: The patient does not have new or worsening altered mentation. Patient's respiratory rate is less than 22. Systolic blood pressure is greater than 100. Patient has a qSOFA score of 0- Negative Sepsis Screen. Suicide/Homicide risk assessment- the patient denies having any suicidal and/or homicidal ideations and does not present with any other emotional, behavioral or mental health complaints. Status: Patient is not a family services manager or dependent. Transition of care: patient was received from a primary care office; dr whipple. 16:46 Method Of Arrival: Walkin/Carried/Asstd [facility] 16:46 Acuity: BRITTANY Level 3 [facility] 16:53 Presenting complaint: Patient states: incarcerated hernia. [facility] 16:56 Presenting complaint: had cereal bar and juice box 2 hours ago. [facility] Triage Assessment: 16:53 General: Appears in no apparent distress, Behavior is appropriate for age, cooperative. srm Pain: Pain currently is 8 out of 10 on a pain scale. 16:54 HIV screening NA for this visit Offered previously. srm Historical: - Allergies: Morphine (leg swelling); - Home Meds: 1. Sertraline 150mg daily (Last dose: 04/24/2016 10:30) 2. valsartan 160 mg oral tab once daily (Last dose: 04/24/2016 10:30) 3. amlodipine 10 mg Oral tab once daily (Last dose: 04/24/2016 10:30) 4. furosemide 80 mg Oral tab 2 times per day (Last dose: 04/23/2016 19:00) 5. Januvia 100 mg oral tab 1 tab once daily (Last dose: 04/24/2016 10:30) 6. fexofenadine 180 mg Oral tab 1 tab once daily (Last dose: 04/24/2016 10:30) 7. acetaminophen 500 mg Oral tbef 1,000 mg daily 8. bisoprolol fumarate 5 mg oral tab once daily (Last dose: 04/24/2016 10:30) 9. oxycodone-acetaminophen 5-325 mg Oral tab every 8 hours prn (Last dose: 04/23/2016 19:00) - PMHx: Diabetes - NIDDM: controlled; Hypertension; CHF; Umbilical hernia; - PSHx: Hernia repair; - Social history: Smoking status: Patient states was never smoker of tobacco. No barriers to communication noted, The patient speaks fluent Tunisian, Speaks appropriately for age. - Family history: Not pertinent. - : The pt / caregiver states he / she is not on anticoagulants. Home medication list is obtained from the patient. - Exposure Risk Screening:: None identified. Screenin:06 Screening information is obtained from the patient. Fall risk: No risks identified. bcj Assistance ADL's: requires no assistance with activities of daily living. Abuse/DV Screen: The patient / caregiver reports he/she is: not in a situation that causes fear, pain or injury. Nutritional screening: No deficits noted. Advance Directives: Currently, there is no health care proxy. home support is adequate. Assessment: 18:06 General: Appears in no apparent distress, Behavior is appropriate for age, cooperative. bcj Pain: Location: umbilical area, right upper quadrant and left upper quadrant Pain currently is 7 out of 10 on a pain scale. Neurological: Level of Consciousness is awake, alert, Oriented to person, place, time. Cardiovascular: Capillary refill < 3 seconds. Respiratory: Airway is patent Respiratory effort is even, unlabored. GI: Abdomen is non- distended obese, Bowel sounds present X 4 quads. Abd is soft X 4 quads Abd is tender to palpation in abdomen diffusely Reports diarrhea, upper abdominal pain. Derm: Skin is pink, warm & dry. 20:29 General: Appears in no apparent distress, comfortable, Behavior is appropriate for age, nn1 cooperative. Neurological: Level of Consciousness is awake, alert, Oriented to person, place, time. Respiratory: Airway is patent Respiratory effort is even, unlabored. Derm: Skin is pink, warm & dry. Vital Signs: 16:38 BP 159 / 80; Pulse 97; Resp 18 S; Temp 98.0; Pulse Ox 99% on R/A; Weight 133.36 kg (R); dd6 Height 5 ft. 3 in. (160.02 cm) (R); 20:12 BP 143 / 79; Pulse 83; Resp 20; Temp 98.3(TE); Pulse Ox 96% on R/A; Pain 6/10; ls3 16:38 Body Mass Index 52.08 (133.36 kg, 160.02 cm) dd6 Vitals: 16:38 Log In Time: April 24, 2016 at 16:36. dd6 ED Course: 16:37 Patient visited by Tre Gonzalez PCA. dd6 16:37 Philly Whipple is Private Physician. dd6 16:37 Patient moved to Waiting dd6 16:39 Patient moved to Pre RCE dd6 16:47 Triage Initiated srm 17:09 Aylin Crow,RN is Primary Nurse. jb5 17:09 Patient moved to 17 jb5 17:40 Julia Chow FNP is PHCP. le 18:06 The patient / caregiver is instructed regarding the plan of care and ED course. Patient yoon has correct armband on for positive identification. Placed in gown. Bed in low position. Call light in reach. Side rails up X2. 18:06 Inserted peripheral IV: 20gauge IV in left antecubital area and blood collected. bcj Patient tolerated the procedure well. 18:08 Patient visited by Garrison Appiah, CIARA. bcj 18:16 Patient visited by Julia Chow FNP. le 18:16 Patient visited by Julia Chow FNP. le 18:46 Patient visited by Tim Noble PCA. jlf 19:10 Patient visited by Rene De La Torre PCA. jmv 19:10 EKG done. (by ED staff). Reviewed by Julia ARMANDO. jmv 19:53 Patient visited by Venus Sullivan RN. nn1 20:04 Chest, 2 View (pa\E\lat) Returned. EDMS 20:06 Chucky Boone MD is Referral Physician. le 20:13 Patient visited by Rhona Duarte PCA. ls3 20:20 [facility] [place] Agreement was scanned into [employer] and attached to record. zo 20:31 No procedures done that require assistance. nn1 04/25 06:05 EKG-ADULT Returned. EDMS 08:14 T-Sheet-- Draft Copy was scanned into [employer] and attached to record. seh 12:08 ECG/EKG was scanned into [employer] and attached to record. gb 12:08 T-Sheet-- Draft Copy was scanned into [employer] and attached to record. gb Administered Medications: 04/24 18:14 Drug: NS 0.9% 1000 ml [sodium chloride 0.9 % injection syringe] Route: IV; Rate: 100 pml mL/hr; Site: left antecubital; 18:14 Drug: fentaNYL (PF) 50 mcg [fentanyl (PF) 50 mcg/mL injection solution (1 mL)] Route: pml IVP; Site: left antecubital; 20:20 Drug: HYDROcodone-acetaminophen 4 pack- 1 packets [hydrocodone 5 mg-acetaminophen 325 nn1 mg tablet (1 tabs)] {Co-Signature: dorota (Eric Bradley RN).} Route: PO; Order Results: Lab Order: Basic Metabolic Profile; SPEC'M 04/24/16 18:04 Test: GLUCOSE, FASTING; Value: 113; Range: 70-105; Abnormal: Above high normal; Units: MG/DL; Status: F Test: BLOOD UREA NITROGEN; Value: 14; Range: 7-18; Units: MG/DL; Status: F Test: CREATININE FOR GFR; Value: 0.84; Range: 0.70-1.30; Units: MG/DL; Status: F Test: GLOMERULAR FILTRATION RATE; Value: > 60.0; Range: >60; Status: F Test: SODIUM LEVEL; Value: 139; Range: 136-145; Units: MEQ/L; Status: F Test: POTASSIUM SERUM; Value: 4.9; Range: 3.5-5.1; Units: MEQ/L; Status: F Test: CHLORIDE LEVEL; Value: 103; Range: 98-107; Units: MEQ/L; Status: F Test: CARBON DIOXIDE LEVEL; Value: 28; Range: 21-32; Units: MEQ/L; Status: F Test: ANION GAP; Value: 8; Range: 8-16; Units: MEQ/L; Status: F Test: CALCIUM LEVEL; Value: 9.1; Range: 8.5-10.1; Units: MG/DL; Status: F Test Note: ; Units are mL/min/1.73 m2 Chronic Kidney Disease Staging per NKF: Stage I & II GFR >=60 Normal to Mildly Decreased Stage III GFR 30-59 Moderately Decreased Stage IV GFR 15-29 Severely Decreased Stage V GFR <15 Very Little GFR Left ESRD GFR <15 on CHIEF COOK Lab Order: CBC with Diff; SPEC'M 04/24/16 18:04 Test: WHITE BLOOD COUNT; Value: 10.7; Range: 4.0-10.0; Abnormal: Above high normal; Units: K/mm3; Status: F Test: RED BLOOD COUNT; Value: 4.34; Range: 4.30-6.10; Units: M/mm3; Status: F Test: HEMOGLOBIN; Value: 12.7; Range: 14.0-18.0; Abnormal: Below low normal; Units: g/dl; Status: F Test: HEMATOCRIT; Value: 38.8; Range: 42.0-52.0; Abnormal: Below low normal; Units: %; Status: F Test: MEAN CORPUSCULAR VOLUME; Value: 89.3; Range: 80.0-96.0; Units: fl; Status: F Test: MEAN CORPUSCULAR HEMOGLOBIN; Value: 29.3; Range: 27.0-33.0; Units: pg; Status: F Test: MEAN CORPUSCULAR HGB CONC; Value: 32.7; Range: 32.0-36.5; Units: g/dl; Status: F Test: RED CELL DISTRIBUTION WIDTH; Value: 13.3; Range: 11.5-14.5; Units: %; Status: F Test: PLATELET COUNT, AUTOMATED; Value: 327; Range: 150-450; Units: k/mm3; Status: F Test: NEUTROPHILS %; Value: 75.6; Range: 36.0-66.0; Abnormal: Above high normal; Units: %; Status: F Test: LYMPH %; Value: 14.4; Range: 24.0-44.0; Abnormal: Below low normal; Units: %; Status: F Test: MONO %; Value: 5.4; Range: 0.0-5.0; Abnormal: Above high normal; Units: %; Status: F Test: EOS %; Value: 2.2; Range: 0.0-3.0; Units: %; Status: F Test: BASO %; Value: 0.5; Range: 0.0-1.0; Units: %; Status: F Test: LARGE UNSTAINED CELL %; Value: 1.9; Range: 0.0-4.0; Units: %; Status: F Test: NEUTROPHILS #; Value: 8.1; Range: 1.8-7.7; Abnormal: Above high normal; Units: K/mm3; Status: F Test: LYMPH #; Value: 1.5; Range: 1.5-4.5; Units: K/mm3; Status: F Test: MONO #; Value: 0.6; Range: 0.0-0.8; Units: K/mm3; Status: F Test: EOS #; Value: 0.2; Range: 0.0-0.50; Units: K/mm3; Status: F Test: BASO #; Value: 0.0; Range: 0.0-0.2; Units: K/mm3; Status: F Test: LARGE UNSTAINED CELL #; Value: 0.2; Range: 0.0-0.4; Units: K/mm3; Status: F Lab Order: Lipase; SPEC'M 04/24/16 18:04 Test: LIPASE; Value: 1368; Range: 73-393; Abnormal: Above high normal; Units: U/L; Status: F Lab Order: Liver Profile; SPEC'M 04/24/16 18:04 Test: AST/SGOT; Value: 39; Range: 15-37; Abnormal: Above high normal; Units: U/L; Status: F Test: ALT/SGPT; Value: 46; Range: 12-78; Units: U/L; Status: F Test: ALKALINE PHOSPHATASE; Value: 58; Range: 45-117; Units: U/L; Status: F Test: BILIRUBIN,TOTAL; Value: 0.3; Range: 0.2-1.0; Units: MG/DL; Status: F Test: BILIRUBIN,DIRECT; Value: < 0.1; Range: 0.0-0.2; Units: MG/DL; Status: F Test: TOTAL PROTEIN; Value: 7.7; Range: 6.4-8.2; Units: GM/DL; Status: F Test: ALBUMIN; Value: 3.9; Range: 3.2-5.2; Units: GM/DL; Status: F Test: ALBUMIN/GLOBULIN RATIO; Value: 1.03; Range: 1.00-1.93; Status: F Lab Order: Lactic Acid (Velarde tube on ice); SPEC'M 04/24/16 18:04 Test: LACTIC ACID LEVEL, LACTATE; Value: 2.0; Range: 0.4-2.0; Units: MMOL/L; Status: F Radiology Order: EKG-ADULT Test: EKG-ADULT REASON FOR EXAMINATION: hx HTN, CHF; Stationary ECG Study; [facility] - ED; ; Test Date: 2016-04-24; Pat Name: SEBASTIAN MCMAHON Department:; Room: -; 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 Lung meng are clear without acute; consolidation, effusion, or pneumothorax. Skeletal structures intact.; ; Impression:; Stable cardiomegaly. No acute pleuroparenchymal process identified.; ; ; Signed by; Julian Sandoval MD 04/24/2016 07:52 P; Outcome: 20:06 Discharge ordered by Provider. le 20:30 Discharge Assessment: Patient awake, alert and oriented x 3. No cognitive and/or nn1 functional deficits noted. Patient verbalized understanding of disposition instructions. 20:31 Discharge Assessment: patient administered narcotics - yes. Pt provided with safe nn1 discharge. The following High Risk Discharge criteria are identified: None. Discharged to home ambulatory. Condition: good Condition: stable. Discharge instructions given to patient, Instructed on discharge instructions, follow up and referral plans. medication usage, no driving heavy equipment, Demonstrated understanding of instructions, medications, Pt was receptive of discharge instructions/ teaching. Prescriptions given X 1, Work note provided to patient. No special radiology studies were completed. Property :Personal belongings accompany Pt. 20:31 Patient left the ED. nn1 Signatures: Dispatcher [employer] EDMS Garrison Appiah, RN RN Christie Bailey, RN RN [facility] Stan, Fela, Reg Reg gb Viviana Pool, BRIM WELT SEWING MACHINE OPERATOR BRIM WELT SEWING MACHINE OPERATOR jb5 Nick Gandhi Lisa, SOX ANALYST SOX ANALYST Tre Lassiter, BRIM WELT SEWING MACHINE OPERATOR BRIM WELT SEWING MACHINE OPERATOR dd6 Aylin Crow,RN RN Tim Oropeza, BRIM WELT SEWING MACHINE OPERATOR BRIM WELT SEWING MACHINE OPERATOR jlf Venus SullivanRN RN nn1 Rhona Duarte, BRIM WELT SEWING MACHINE OPERATOR BRIM WELT SEWING MACHINE OPERATOR ls3 Lela Aguirre Jose, BRIM WELT SEWING MACHINE OPERATOR BRIM WELT SEWING MACHINE OPERATOR jmv Eric mendozab Chart Complete NICO
== END 2016-04-24 20:31 | disposition home or self-care (01) ==
LOC: M ED 16:36
DX: R11.2 Nausea with vomiting, unspecified (principal); E11.9 Type 2 diabetes mellitus without complications; I10 Essential (primary) hypertension; I50.20 Unspecified systolic (congestive) heart failure; K42.9 Umbilical hernia without obstruction or gangrene; Z79.84 Long term (current) use of oral hypoglycemic drugs; Z79.899 Other long term (current) drug therapy; Z88.8 Allergy status to other drugs, medicaments and biological substances
CPT/HCPCS: 36415; 71020; 80048; 80076; 83605; 83690; 85025; 93005; 96374; 99284; J3010

== ENCOUNTER 2016-05-20 06:59 | Day surgery (SDC) | payer BC ==
--- NOTE | 2016-05-12 12:59 | CR ---
DATE OF CONSULTATION: 05/12/2016 I was asked to see him for preoperative clearance for umbilical ventral hernia repair to be done on 05/20/[address] Boone with robotic-assisted laparoscopic procedure. Patient is 41 years of age, has had multiple medical problems since he started here seeing me, which has only been less than a year. He was in the hospital back on 02/17/2016 with acute diverticulitis. He had umbilical hernia repair laparoscopically by Dr. Henderson November of 2015, and now he is having another ventral hernia repair, umbilical hernia repair by Dr. Boone on 05/20/2016. He has been in considerable abdominal pain but has been relieved with Percocet. He has been moving his bowels well. He has not had any vomiting or projectile vomiting. He has multiple medical problems, including congestive heart failure mainly with diastolic dysfunction, diabetes. He has sleep apnea. He does wear continuous positive airway pressure (CPAP). He also has severe obesity, hypertension. His blood pressure has been well controlled with his medication and his A1c's have been in very good control with his diabetes as well as his heart failure; he has been euvolemic on his Lasix. He has not had any chest pain or chest pressure or shortness of breath. He has not had any diaphoresis. He has not had any claudication symptoms. His biggest complaint is the abdominal pain in the umbilical region. Again, he has been moving his bowels well. He has not had any symptoms of amaurosis fugax, upper or lower extremity numbness or tingling. No history of transient ischemic attack (TIA) or cerebrovascular accident (CVA). No history of myocardial infarction, and no history of any recent pneumonia. PAST MEDICAL HISTORY: Is significant for chronic diastolic heart failure, morbid obesity, diabetes mellitus, hypertension, sleep apnea. He also has hyperlipidemia. PAST SURGICAL HISTORY: Umbilical hernia repair by Dr. Henderson laparoscopically November 2015. Recent hospitalization back in 02/2016 for acute diverticulitis. Recent hospitalization for abdominal pain from the umbilical hernia. Patient was deemed appropriately to be discharged and will followup outpatient for laparoscopic surgery, which will be due on 05/20/2016. FAMILY HISTORY: On this patient is noncontributory. No premature coronary artery disease. Three sisters, oldest one had a CVA in her 50s. Father has diabetes, congestive heart failure, and hypertension. Mother had stent placed over the age of 65 for coronary artery disease (CAD) and hypertension, diabetes. Maternal grandmother due to myocardial infarction (NH), unknown age. ALLERGIES: He has an allergy to MORPHINE, actually causes edema, but he can take Percocet. MEDICATIONS: That he currently takes include the following, and these are updated list of medications and quite accurate up until today: - amlodipine 10 mg a day - bisoprolol 5 mg a day - fexofenadine 180 mg a day - a Lasix 80 mg twice a day - Januvia 100 mg a day - metformin 500 mg two twice a day - Percocet 5/325 mg every 6 hours as needed for pain - sertraline 100 mg a day - valsartan 160 mg a day SOCIAL HISTORY: He is . Negative for any smoking. Drinks two or three times a week on his days off, probably beer and vodka or sodas. No history of hepatitis, tuberculosis, HIV exposure, sexually transmitted disease, or intravenous (IV) drug use. REVIEW OF SYSTEMS: He has not had any constitutional symptoms such as fever, chills or night sweats, unexplained weight loss or weight gain. He has not had any epistaxis, rhinorrhea. He has not had any hoarseness. He has not had any sore throat. Cardiovascular (CV): Does have congestive heart failure. Also, hypertension, hyperlipidemia. No angina symptoms. No history of atrial fibrillation or other arrhythmias. No coronary artery disease, peripheral vascular disease, rheumatic heart disease. No increased shortness of breath, and no syncopal episodes. Respiratory: Denied any productive cough. No history of pulmonary embolism. Does have sleep apnea. Gastrointestinal (GI): Is having abdominal pain that has been pretty persistent since his hospitalization for his umbilical hernia. He has not had any projectile vomiting. Has been moving his bowels well. No change in bowel habits. Genitourinary: He denies any dysuria, frequency, hesitancy. No history of any kidney stones. No recent urinary tract infections. Musculoskeletal: No increased upper or lower extremity pain or discomfort. Neurologic: Denies any disorientation, dizziness, headache, lightheadedness, seizure, stroke, syncope, TIA, or tremor. Endocrine: Positive for diabetes. Negative for hypo- or hyperthyroidism. No polyphagia, polydipsia, or polyuria, and no heat or cold intolerance. PHYSICAL EXAM: Reveals a 41-year-old, morbidly obese male who does not appear to be in acute distress. Answers questions appropriately. Blood pressure is (BP) 152/88, pulse is 84, temperature is 96.8. Weight is 293. Oxygen saturation 95% on room air. Body mass index (BMI) 52.7. Head is normocephalic, atraumatic. Sclerae are nonicteric. Extraocular muscle movements are intact. Throat is without any erythema or exudate. Neck: Is without any jugular venous distention, adenopathy, or carotid bruits. Heart: S1, S2, without any new murmurs, rubs or gallops, or heaves, or thrills. Lung sounds: Were clear to auscultation without any wheezing, rales, or rhonchi. No adventitious sounds noted. Abdomen: Is nondistended but obese. Has umbilical hernia in place with tenderness around the umbilical hernia, which is slightly reducible, but quite a bit of pain and discomfort in the umbilical region. There is no rebound or guarding. There is no hepatic or splenic enlargement or pulsatile masses. Extremities: Are without any significant pretibial, ankle, or pedal edema. Neurological exam: Cranial nerves II-XII are intact. There are no gross deficits present on this patient. Tactile and position sense is intact, and there is no evidence of any weakness in the upper or lower extremities. Muscle strength is 5/5. EKG: Patient had EKG performed on 04/24/2016. Therefore, it is not repeated. He had sinus rhythm with left atrial enlargement. His rate was 83 beats per minute. There is no evidence of any left ventricular hypertrophy (LVH) or acute ST changes. IMPRESSION: Is a 41-year-old male to undergo robotic-assisted laparoscopic umbilical ventral hernia repair by Dr. Boone on 05/20/2016. Patient presents a moderate risk for surgery due to his morbid obesity, diabetes, and chronic congestive heart failure. Patient was told to use his CPAP and bring his CPAP with him for his obstructive sleep apnea. For his diabetes, he is going to hold his metformin 2 days prior to surgery, his Januvia 1 day prior to surgery. He will need to be on coverage in the hospital with basal insulin sliding scale to keep his blood sugars under control. Chronic diastolic heart failure. Was told to hold his Lasix the morning of surgery. He is taking 80 mg twice a day. He will take his bisoprolol 5 mg the morning of surgery and amlodipine 10 mg the morning of surgery. Hypertension. He will hold his valsartan the day before surgery. Up until then, he will continue to take it until the day before surgery. Anxiety disorder. Will take his sertraline the morning of surgery. All other medications will be held prior to surgery. If there are any questions, please do not hesitate to call me at [phone]. ADDENDUM: Patient underwent stress test on 05/23/[address] Bunn's office at [facility] due to congestive heart failure and for further evaluation and preoperative cardiology exam. Patient was found to be negative for any ischemia at maximal workload. He had some impaired functional aerobic capacity. He has morbid obesity. No exercise-induced arrhythmias were seen. Recommended risk factor modification and his left ventricular ejection fraction (LVEF) was greater than 50%; that was seen on the stress test, and this was done on 05/23/2015. Furthermore, the patient had an echocardiogram performed on his heart prior to the stress test that showed him to have some initial sinus tachycardia. He had moderate concentric left ventricular hypertrophy, normal left ventricular wall motion and wall thickness, normal left ventricular systolic function, left ventricular ejection fraction of 65%, some diastolic dysfunction grade 3 or grade 4 was seen, moderately severe left atrial dilatation, and this was prior to his stress test, which was performed in 05/2015. The echocardiogram was performed 04/22/2015. Addendum dictated: JORGE 05/12/2016 1508 Addendum transcribed: endy 05/12/2016 1538
[~2016-05-20] VITALS: Ht 157.5 cm; Wt 139.3 kg
[2016-05-20] MEDS ORDERED: LR 1,000 ML IV SCH ×5 (07:15→14:15)
[2016-05-20] MEDS ORDERED: PROPOFOL 200 MG/20 ML VIAL As Ordered ONE ×2 (08:49→11:19)
[2016-05-20] MEDS ORDERED: ROCURONIUM BROMIDE 50 MG/5 ML VIAL As Ordered ONE ×2 (08:49→10:43)
[2016-05-20] MEDS ORDERED: LIDOCAINE 2% INJ 100 MG/5 ML SDV (FOR ANES.) As Ordered ONE (08:49)
[2016-05-20] MEDS ORDERED: ONDANSETRON 4MG/2ML VIAL (J2405) As Ordered ONE ×2 (08:49→10:36)
[2016-05-20] MEDS ORDERED: fentaNYL 250 MCG/5 ML INJECTION (J3010) As Ordered ONE (08:49)
[2016-05-20] MEDS ORDERED: dexameTHASONE 4 MG/ML 1ML VIAL (J1100) As Ordered ONE (08:49)
[2016-05-20] MEDS ORDERED: MIDAZOLAM INJ 2 MG/2 ML VIAL (J2250) As Ordered ONE (08:50)
[2016-05-20] MEDS: FEXOFENADINE 60 MG TAB PO SCH (09:00)
[2016-05-20] MEDS: SENOKOT S TAB PO SCH ×2 (09:00→21:18)
[2016-05-20] MEDS ORDERED: BUPIVACAINE HCL 0.25% 30 ML VIAL As Ordered ONE (09:21)
[2016-05-20] MEDS ORDERED: LIDOCAINE 1% SDV INJ 30 ML VIAL As Ordered ONE (09:21)
[2016-05-20] MEDS ORDERED: LIDOCAINE 1% SDV INJ 30 ML VIAL XX ONE (10:17)
[2016-05-20] MEDS ORDERED: BUPIVACAINE HCL 0.25% 30 ML VIAL XX ONE (10:17)
[2016-05-20] MEDS ORDERED: KETOROLAC 60 MG/2 ML VIAL (J1885) As Ordered ONE (10:35)
[2016-05-20] MEDS ORDERED: GLYCOPYRROLATE INJ 0.2 MG/ML 2 ML VIAL As Ordered ONE (10:35)
[2016-05-20] MEDS ORDERED: NEOSTIGMINE 1MG/ML 5 ML SYRINGE (J2710) As Ordered ONE (10:35)
[2016-05-20] MEDS ORDERED: SUCCINYLCHOLINE 100 MG/5 ML SYRINGE (J0330) As Ordered ONE (10:35)
[2016-05-20] MEDS ORDERED: METOCLOPRAMIDE INJ 10MG/2ML VIAL (J2765) As Ordered ONE (10:39)
[2016-05-20] MEDS ORDERED: HYDROmorphone HCL 2 MG/ML 1ML VIAL (J1170) As Ordered ONE (11:06)
[2016-05-20] MEDS ORDERED: ONDANSETRON 4MG/2ML VIAL (J2405) IV PRN ×3 (12:30→14:15)
[2016-05-20] MEDS ORDERED: ACETAMINOPHEN TAB 650MG DOSE (2X325MG) PO PRN (12:30)
[2016-05-20] MEDS ORDERED: NORCO, ANEXSIA 5/325MG TABLET (HYDROcodone/ACETAMINOPHEN) PO PRN ×2 (12:30)
[2016-05-20] MEDS ORDERED: FURO1TAB15 PO (12:44)
[2016-05-20] MEDS ORDERED: PERCOCET 5MG/325MG TAB PO PRN (12:45)
[2016-05-20] MEDS ORDERED: fentaNYL 100 MCG/2 ML INJECTION (J3010) As Ordered ONE (13:02)
[2016-05-20] MEDS: PERCOCET 5MG/325MG TAB PO PRN ×3 (13:05→21:20)
[2016-05-20] MEDS: fentaNYL 100 MCG/2 ML INJECTION (J3010) IV PRN ×3 (13:08→13:30)
[2016-05-20] MEDS ORDERED: HYDROmorphone HCL 1 MG/ML SYRINGE (J1170) As Ordered ONE (13:50)
[2016-05-20] MEDS ORDERED: HYDROmorphone HCL 1 MG/ML SYRINGE (J1170) IV PRN (14:15)
[2016-05-20] MEDS ORDERED: fentaNYL 100 MCG/2 ML INJECTION (J3010) IV PRN (14:15)
[2016-05-20 14:45] VITALS: BP 133/89
[2016-05-20 15:15] VITALS: BP 136/88
[2016-05-20 16:15] VITALS: BP 145/80
[2016-05-20] MEDS: FUROSEMIDE 80 MG TAB PO SCH (16:46)
[2016-05-20] MEDS: SITagliptin 50 MG TAB (JANUVIA) PO SCH (16:46)
[2016-05-20] MEDS: ENOXAPARIN 40 MG/0.4 ML SYRINGE (J1650) SC SCH (16:47)
[2016-05-20 17:15] VITALS: BP 131/78
[2016-05-20] MEDS ORDERED: metFORMIN (GLUCOPHAGE) 500 MG TAB PO SCH (18:00)
[2016-05-20] MEDS: KETOROLAC 30 MG/ML VIAL (J1885) IV PRN (18:13)
[2016-05-20 18:15] VITALS: BP 134/76
[2016-05-20] MEDS ORDERED: VALSARTAN 80 MG TAB (DIOVAN) PO SCH (21:00)
[2016-05-20 22:00] VITALS: BP 126/67
[2016-05-21] MEDS: KETOROLAC 30 MG/ML VIAL (J1885) IV PRN ×2 (00:17→07:38)
[2016-05-21] MEDS: PERCOCET 5MG/325MG TAB PO PRN ×2 (05:12→11:33)
[2016-05-21 06:00] VITALS: BP 126/70
[2016-05-21 06:55] LABS: BASO % 0.4 % (0.0-1.0); EOS # 0.2 K/mm3 (0.0-0.50); EOS % 1.7 % (0.0-3.0); LARGE UNSTAINED CELL # 0.1 K/mm3 (0.0-0.4); LARGE UNSTAINED CELL % 1.2 % (0.0-4.0); LYMPH # 1.3 K/mm3 (1.5-4.5); LYMPH % 9.9 % (24.0-44.0); MEAN CORPUSCULAR HEMOGLOBIN 29.1 pg (27.0-33.0); MEAN CORPUSCULAR HGB CONC 32.1 g/dl (32.0-36.5); MEAN CORPUSCULAR VOLUME 90.7 fl (80.0-96.0); MONO # 0.8 K/mm3 (0.0-0.8); MONO % 7.3 % (0.0-5.0); NEUTROPHILS # 9.1 K/mm3 (1.8-7.7); NEUTROPHILS % 79.5 % (36.0-66.0); PLATELET COUNT, AUTOMATED 314 k/mm3 (150-450); RED CELL DISTRIBUTION WIDTH 13.7 % (11.5-14.5); WHITE BLOOD COUNT 11.4 K/mm3 (4.0-10.0)
[2016-05-21 07:13] LABS: ANION GAP 6 MEQ/L (8-16); BLOOD UREA NITROGEN 19 MG/DL (7-18); CALCIUM LEVEL 8.9 MG/DL (8.5-10.1); CARBON DIOXIDE LEVEL 31 MEQ/L (21-32); CHLORIDE LEVEL 101 MEQ/L (98-107); CREATININE FOR GFR 1.13 MG/DL (0.70-1.30); GLOMERULAR FILTRATION RATE > 60.0 (>60); GLUCOSE, FASTING 144 MG/DL (70-105); POTASSIUM SERUM 4.7 MEQ/L (3.5-5.1); SODIUM LEVEL 138 MEQ/L (136-145)
[2016-05-21] MEDS ORDERED: metFORMIN (GLUCOPHAGE) 1000 MG TABLET PO SCH (08:00)
[2016-05-21] MEDS: ENOXAPARIN 40 MG/0.4 ML SYRINGE (J1650) SC SCH (08:22)
[2016-05-21] MEDS ORDERED: NORCOTAB PO (08:22)
[2016-05-21] MEDS: SITagliptin 50 MG TAB (JANUVIA) PO SCH (08:22)
[2016-05-21] MEDS: SENOKOT S TAB PO SCH (08:22)
[2016-05-21 08:23] VITALS: BP 126/70
[2016-05-21] MEDS: FUROSEMIDE 80 MG TAB PO SCH (08:23)
[2016-05-21] MEDS: FEXOFENADINE 60 MG TAB PO SCH (08:23)
--- NOTE | 2016-05-21 08:24 | RO ---
DATE OF PROCEDURE: 05/20/2016 PREPROCEDURE DIAGNOSES: Recurrent ventral/umbilical hernia. POSTPROCEDURE DIAGNOSES: Recurrent ventral/umbilical hernia. Partially incarcerated small bowel adhered to the previous mesh. PROCEDURE PERFORMED: 1. Robotic-assisted laparoscopic ventral hernia repair. 2. Lysis of adhesions. 3. Removal of previous mesh. DESCRIPTION OF PROCEDURE: Mr. Alba is a 41-year-old gentleman, morbidly obese with Body Mass Index (BMI) of 56 who had a previous history of open umbilical hernia repair, was seen sometime last year in the emergency department with incarceration of a piece of bowel in his recurrent ventral hernia. This was reduced back and he opted for on interval repair. He has followed up in my clinic. He has multiple comorbidities that needed to be optimized otherwise, he was advised surgery. After discussing options, we have decided on performing laparoscopic repair with the use of da Segundo robot platform to close the defect, as well as most likely dissect the bowel off the abdominal wall. The patient consented to surgery and received 2 grams of Ancef preoperatively for prophylaxis. He was brought to the operating room, laid supine on the table. Compression boots placed on his lower extremities for deep vein thrombosis (DVT) prophylaxis. General endotracheal anesthesia started without any problems. His abdomen prepped and draped in usual sterile fashion. After surgical time-out, we began our surgery. About a 1.5 centimeter transverse incision was created at the left subcostal line laterally at about the anterior axillary line. Using this incision, a Veress needle was inserted into the abdomen. Intra-abdominal placement confirmed with saline drop technique. CO2 insufflation was started at a pressure of 15 mmHg. Using the same incision, the 12 mm Visiport was placed under direct vision of the laparoscope. He was then placed on a slight right lateral decubitus to retract the bowels away from the left side of the abdominal wall. Under direct vision, an 8 mm working port was placed at the axillary line. Just above the anterior-superior iliac spine and in between our two ports, an 8 mm robotic trocar was placed. The da Segundo tower was placed on the opposite side aligned with the hernia. The trocars were docked to the robot. I unscrubbed, took control of the camera and the instruments at the surgeon's console. On diagnostic laparoscopy, there was a piece of bowel that is tented up into the fascial defect at above his umbilicus. The previous mesh was adhered only to one side and seems to be adhered to the bowel also. There were less several flimsy adhesions on the anterior abdominal wall. This was easily lysed with laparoscopic scissors. With my purchasing assistant pushing down onto the hernia defect, the bowel was reduced into the abdomen, it was well adhered onto the sac, which was not clearly defined as it seems to be the same color and consistency as the bowel, likewise also the mesh was only adhered onto the inferior side of the defect with part of the mesh adhered to the bowel wall. With this setting, we continued to lyse the bowel off the hernia sac and the previous mesh. I first resected the hernia sac to safely dissect free the bowel away from the abdominal wall and likewise the mesh where it is close to the mesh, we mostly used sharp dissection with the laparoscopic scissors, avoiding cautery to avoid injury. We got into a plane in between the sac and the abdominal wall, which made it easy to come around the abdominal wall. We essentially removed the sac from the abdominal wall, likewise part of the mesh as we reduced the small bowel back into the abdomen and after doing this we dissected the mesh and the hernia sac away from the bowel with slow, meticulous dissection to avoid injury and it seems like we were able to do this safely, as I did not see any clear serosal defect after the dissection. After this, there were some parts of the mesh that was still adhered to the inferior side of the hernia defect that we removed. Preperitoneal dissection was then circumferentially done to take the tension off the hernia edges. After making sure of adequate hemostasis, I then used a #0 V-Loc and primarily closed the fascial defect into rounds of the suture. While doing this, we decreased the pressure from 15-12 mmHg. The fascial defect itself roughly measures 4 x 30 cm. After closing the defect, I carefully measured around the incision line. I chose an 11.4 cm round Ventralight mesh with Echo. This was introduced into the abdomen at the midpoint of the fascial defect vertically. A Negrito-Jessica suture passer was introduced into the abdomen. The tail of the mesh was pulled up. The balloon was inflated to flatten the mesh onto the abdominal wall. I felt this was adequately covering the incision line and hernia defect. With control of the mesh, I then circumferentially sutured the mesh onto the fascia using a running stitch of #0 V-Loc. The pressure was contained between 10 and 12 mmHg. After doing so, the balloon was passed out of the abdomen. The circumferential suturing of the mesh was then completed with adequate tension of the mesh spread out well into the abdominal wall. After suturing of the mesh, I then came back onto the previously dissected loop of bowel and checked it once more for injury. Once satisfied, the pieces of the hernia sac and mesh was removed from the abdomen. We surveyed the abdomen for any evidence of bleeding or injury and none was found. I scrubbed back in, the abdomen was deflated. All ports were removed. The fascial defect on the left upper incision where it had the 12 mm port was closed anteriorly with a #0 Vicryl in a mattress fashion. The rest of skin incisions were closed with #4-0 Monocryl in subcuticular fashion. Dermabond dressing was then used for wound coverage. He was then promptly awakened, extubated, brought to the recovery room stable.
[2016-05-21] MEDS ORDERED: SERTRALINE 100 MG TAB PO SCH ×2 (09:00)
[2016-05-21] MEDS ORDERED: BISOPROLOL FUMARATE 5 MG TAB PO SCH (09:00)
[2016-05-21] MEDS ORDERED: amLODIPine 10 MG TAB PO SCH (09:00)
== END 2016-05-21 14:55 | disposition home or self-care (01) ==
LOC: M SDC 06:59 → M MS5PR 14:24 → M SDC 05-21 14:55
PROVIDERS: ATTEND Surgery
DX: K43.2 Incisional hernia without obstruction or gangrene (principal); K66.0 Peritoneal adhesions (postprocedural) (postinfection); I50.9 Heart failure, unspecified; I10 Essential (primary) hypertension; E11.9 Type 2 diabetes mellitus without complications; G47.30 Sleep apnea, unspecified; Z79.899 Other long term (current) drug therapy
CPT/HCPCS: 36415; 49652; 80048; 85025; 88302; 96372; 96374; 96375; 96376; C1781; J0330; J0690; J1170; J1650; J1885; J2250; J2405; J2710; J2765; J3010

== ENCOUNTER 2017-07-25 02:18 | Emergency (ER) | payer BC ==
[2017-07-25] MEDS: KETOROLAC 30 MG/ML VIAL (J1885) IV ×2 (03:15→04:00)
[2017-07-25 03:28] LABS: BASO % 0.4 % (0.0-1.0); EOS # 0.2 10^3/uL (0.0-0.50); EOS % 1.7 % (0.0-3.0); HEMATOCRIT 47.8 % (42.0-52.0); HEMOGLOBIN 15.7 g/dl (13.5-17.5); IMMATURE GRANULOCYTE % 0.5 % (0-3.0); LYMPH # 1.7 10^3/uL (1.5-4.5); LYMPH % 15.7 % (24.0-44.0); MEAN CORPUSCULAR HEMOGLOBIN 28.5 pg (27.0-33.0); MEAN CORPUSCULAR HGB CONC 32.8 g/dl (32.0-36.5); MEAN CORPUSCULAR VOLUME 86.9 fl (80.0-96.0); MONO # 0.6 10^3/uL (0.0-0.8); MONO % 5.7 % (0.0-5.0); NEUTROPHILS # 8.5 10^3/uL (1.8-7.7); PLATELET COUNT, AUTOMATED 289 10^3/uL (150-450); RED CELL DISTRIBUTION WIDTH 12.7 % (11.5-14.5); WHITE BLOOD COUNT 11.1 10^3/uL (4.0-10.0)
[2017-07-25 05:02] LABS: ALBUMIN 3.7 GM/DL (3.2-5.2); ALBUMIN/GLOBULIN RATIO 0.93 (1.00-1.93); ALKALINE PHOSPHATASE 84 U/L (45-117); ALT/SGPT 51 U/L (12-78); ANION GAP 7 MEQ/L (8-16); AST/SGOT 27 U/L (7-37); BILIRUBIN,DIRECT < 0.1 MG/DL (0.0-0.2); BILIRUBIN,TOTAL 0.5 MG/DL (0.2-1.0); BLOOD UREA NITROGEN 11 MG/DL (7-18); CALCIUM LEVEL 10.4 MG/DL (8.5-10.1); CARBON DIOXIDE LEVEL 30 MEQ/L (21-32); CHLORIDE LEVEL 99 MEQ/L (98-107); CREATININE FOR GFR 0.84 MG/DL (0.70-1.30); GLOMERULAR FILTRATION RATE > 60.0 (>60); GLUCOSE, FASTING 398 MG/DL (70-100); LIPASE 129 U/L (73-393); POTASSIUM SERUM 4.6 MEQ/L (3.5-5.1); SODIUM LEVEL 136 MEQ/L (136-145); TOTAL PROTEIN 7.7 GM/DL (6.4-8.2)
[2017-07-25] MEDS ORDERED: ISOVUE-370 76% 100ML VIAL (Q9967) As Ordered (05:17)
[2017-07-25 05:44] LABS: ESTIMATED AVERAGE GLUCOSE 318 MG/DL (60-110); HEMOGLOBIN A1c 12.7 %
[2017-07-25] MEDS: traMADol 50 MG TAB (BULK 4 TAB ED) PO (06:56)
== END 2017-07-25 06:59 | disposition home or self-care (01) ==
LOC: M ED 02:18
DX: K52.9 Noninfective gastroenteritis and colitis, unspecified (principal); E66.9 Obesity, unspecified; I50.9 Heart failure, unspecified; E11.9 Type 2 diabetes mellitus without complications; I11.0 Hypertensive heart disease with heart failure; G47.33 Obstructive sleep apnea (adult) (pediatric); Z87.19 Personal history of other diseases of the digestive system; Z98.890 Other specified postprocedural states; Z91.018 Allergy to other foods; Z88.5 Allergy status to narcotic agent; Z79.899 Other long term (current) drug therapy; Z79.84 Long term (current) use of oral hypoglycemic drugs
CPT/HCPCS: Q9967

== ENCOUNTER 2017-07-25 20:39 | Emergency (ER) | payer BC ==
[2017-07-25] MEDS: ACETAMINOPHEN TAB 650MG DOSE (2X325MG) PO (22:26)
== END 2017-07-25 23:09 | disposition home or self-care (01) ==
LOC: M ED 20:39
DX: S00.83XA Contusion of other part of head, initial encounter (principal); W00.1XXA Fall from stairs and steps due to ice and snow, initial encounter; Y92.018 Other place in single-family (private) house as the place of occurrence of the external cause; E11.9 Type 2 diabetes mellitus without complications; I10 Essential (primary) hypertension; I50.9 Heart failure, unspecified; Z79.899 Other long term (current) drug therapy; Z79.84 Long term (current) use of oral hypoglycemic drugs; Z88.5 Allergy status to narcotic agent; Z91.018 Allergy to other foods
CPT/HCPCS: 73060

== ENCOUNTER 2017-10-22 22:58 | Emergency (ER) | payer BC ==
[2017-10-23] MEDS: NORCO 5/325MG TABLET (BULK FOR ED) PO (01:11)
[2017-10-23] MEDS: IBUPROFEN 600 MG TAB PO (01:11)
== END 2017-10-23 01:19 | disposition home or self-care (01) ==
LOC: M ED 22:58
DX: L03.032 Cellulitis of left toe (principal); B35.1 Tinea unguium; E11.9 Type 2 diabetes mellitus without complications; I10 Essential (primary) hypertension; J45.909 Unspecified asthma, uncomplicated; Z79.84 Long term (current) use of oral hypoglycemic drugs; Z79.899 Other long term (current) drug therapy; Z88.5 Allergy status to narcotic agent; Z91.018 Allergy to other foods
CPT/HCPCS: 73660

== ENCOUNTER 2019-04-25 07:09 | Emergency (ER) | payer BC ==
[~2019-04-25] VITALS: Ht 157.5 cm; Wt 128.2 kg
[~2019-04-25 07:09] MED LIST changes: -AMLO10TA2 PO; +AMLO10TA5 PO; +BACT800T5 PO; +BISO5TAB14 PO; -BISO5TAB5 PO; +CIPR-249 PO; -CIPR500T89 PO; +FLUO40CA PO; -FURO1TAB15 PO; +FURO80TA2 PO; +HYDR-3715 PO; +IBUP-1022 PO; -LASI20TA PO; +LASI20TA3 PO; -METF1000 PO; +METF10004 PO; -METF500T PO; +METF500T13 PO; +NAPR-885 PO; -NORCOTAB PO; +TERB1CRE2 TOP; -VALS1TAB47 PO; +VALS1TAB67 PO; +ZOFR4TAB14 PO
[2019-04-25 07:52] LABS: BASO # 0.1 10^3/uL (0.0-0.2); BASO % 0.7 % (0.0-1.0); EOS # 0.3 10^3/uL (0.0-0.5); EOS % 3.5 % (0.0-3.0); HEMATOCRIT 45.8 % (42.0-52.0); HEMOGLOBIN 15.5 g/dl (13.5-17.5); LYMPH # 2.3 10^3/uL (1.5-5.0); LYMPH % 31.6 % (24.0-44.0); MEAN CORPUSCULAR HEMOGLOBIN 31.5 pg (27.0-33.0); MEAN CORPUSCULAR HGB CONC 33.8 g/dl (32.0-36.5); MEAN CORPUSCULAR VOLUME 93.1 fl (80.0-96.0); MONO # 0.6 10^3/uL (0.0-0.8); MONO % 8.4 % (0.0-5.0); NEUTROPHILS # 4.1 10^3/uL (1.5-8.5); NEUTROPHILS % 55.7 % (36.0-66.0); PLATELET COUNT, AUTOMATED 251 10^3/uL (150-450); RED BLOOD COUNT 4.92 10^6/uL (4.30-6.10); WHITE BLOOD COUNT 7.4 10^3/uL (4.0-10.0)
[2019-04-25] MEDS ORDERED: amLODIPine 10 MG TAB PO ONE (08:00)
[2019-04-25] MEDS ORDERED: bisoproloL fumarate 5 MG TAB PO ONE (08:00)
[2019-04-25 08:27] LABS: BLOOD UREA NITROGEN 8 MG/DL (7-18); CALCIUM LEVEL 8.8 MG/DL (8.5-10.1); CARBON DIOXIDE LEVEL 27 MEQ/L (21-32); CHLORIDE LEVEL 100 MEQ/L (98-107); CPK CREATINE PHOSPHOKINASE 751 U/L (39-308); CREATININE FOR GFR 0.65 MG/DL (0.70-1.30); GLOMERULAR FILTRATION RATE > 60.0 (>60); GLUCOSE, FASTING 243 MG/DL (70-100); MB/CK RELATIVE INDEX 1.86 (< OR =4); POTASSIUM SERUM 4.1 MEQ/L (3.5-5.1); SODIUM LEVEL 136 MEQ/L (136-145); TROPONIN I 0.02 NG/ML (< 0.10)
--- NOTE | 2019-04-25 08:37 | REP ---
Portable chest x-ray: Single view. History: Chest pain. Comparison study: February 22, 2017. Findings: Monitoring electrodes overlie the chest. Lungs are well inflated and clear. Pleural angles are sharp. Heart size is borderline and unchanged. Pulmonary vasculature is cephalized. There is no evidence of pleural effusion or pulmonary edema. Impression: Vascular cephalization. Borderline heart size. Otherwise no acute disease. Electronically Signed by Bakari Bain MD 04/25/2019 07:53 A
[2019-04-25 08:51] LABS: NT-PRO BNP 38 PG/ML (<125)
[2019-04-25] MEDS ORDERED: LOSARTAN 50 MG TAB PO ONE (09:30)
[2019-04-25] MEDS ORDERED: FUROSEMIDE 40 MG/4 ML VIAL (J1940) IV ONE (09:30)
[2019-04-25 10:17] VITALS: BP 168/89
[2019-04-25 11:20] LABS: HEMOGLOBIN A1c 11.1 %
[2019-04-25 13:54] LABS: CK-MB VALUE MASS 9.8 NG/ML (<3.6); CPK CREATINE PHOSPHOKINASE 594 U/L (39-308); MB/CK RELATIVE INDEX 1.65 (< OR =4); TROPONIN I < 0.02 NG/ML (< 0.10)
[2019-04-25] MEDS ORDERED: CARV25TA PO (14:04)
[2019-04-25] MEDS ORDERED: LOSA100T50 PO (14:04)
[2019-04-25] MEDS ORDERED: LASI40TA9 PO (14:05)
[2019-04-25] MEDS ORDERED: METF10004 PO (14:05)
[2019-04-25] MEDS ORDERED: ASPI81TA85 PO (14:06)
[2019-04-25 14:50] VITALS: BP 147/85
--- NOTE | 2019-04-26 10:00 | ECGEPIP ---
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
--- NOTE | 2019-04-26 10:13 | ECGEPIP ---
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
== END 2019-04-25 14:52 | disposition home or self-care (01) ==
LOC: M ED 07:09
DX: R07.9 Chest pain, unspecified (principal); I11.0 Hypertensive heart disease with heart failure; R00.0 Tachycardia, unspecified; E78.5 Hyperlipidemia, unspecified; E11.9 Type 2 diabetes mellitus without complications; Z91.018 Allergy to other foods; Z88.5 Allergy status to narcotic agent; Z79.82 Long term (current) use of aspirin; Z79.84 Long term (current) use of oral hypoglycemic drugs; Z79.899 Other long term (current) drug therapy
CPT/HCPCS: 36415; 71045; 80048; 82550; 82553; 83036; 83880; 85025; 93005; 93041; 94760; 96374; 99285; J1940

== ENCOUNTER → 2019-05-01 | Outpatient (REF) | payer BC ==
[~2019-05-01] MED LIST changes: +ASPI81TA85 PO; +CARV25TA PO; +LASI40TA9 PO; +LOSA100T50 PO
[2019-05-01 18:41] LABS: CHOLESTEROL RISK RATIO 5.97 (<5)
[2019-05-01 19:05] LABS: CREATININE, URINE 43.9 MG/DL; MALB URINE SIEMENS 80.1 MG/L; MAU/CREAT RATIO 182.4 MCG/MG (0.0-30.0)
== END ==
LOC: M SFHCPLAZ 15:00
PROVIDERS: ATTEND Family Medicine
DX: E11.65 Type 2 diabetes mellitus with hyperglycemia (principal)

== ENCOUNTER → 2019-08-03 | Outpatient (REF) | payer BC ==
[2019-08-03 17:27] LABS: ALBUMIN 3.7 GM/DL (3.2-5.2); ALT/SGPT 62 U/L (12-78); BILIRUBIN,TOTAL 0.4 MG/DL (0.2-1.0); BLOOD UREA NITROGEN 13 MG/DL (7-18); CALCIUM LEVEL 9.3 MG/DL (8.5-10.1); CARBON DIOXIDE LEVEL 29 MEQ/L (21-32); CHLORIDE LEVEL 103 MEQ/L (98-107); CREATININE FOR GFR 0.63 MG/DL (0.70-1.30); GLOMERULAR FILTRATION RATE > 60.0 (>60); GLUCOSE, FASTING 134 MG/DL (70-100); SODIUM LEVEL 137 MEQ/L (136-145); TOTAL PROTEIN 7.6 GM/DL (6.4-8.2)
[2019-08-03 17:29] LABS: HEMOGLOBIN A1c 7.6 %
== END ==
LOC: M SFHCPLAZ 14:16
DX: E11.65 Type 2 diabetes mellitus with hyperglycemia (principal)

== ENCOUNTER → 2020-01-15 | Outpatient (REF) | payer BC ==
[~2020-01-15] MED LIST changes: -AMLO10TA5 PO; +AMLO1TAB25 PO; -ASPI81TA85 PO; +ASPI81TA86 PO; +ENAL-36 PO; -ENAL10TA2 PO; +ENAL5TA PO; -ENAL5TAB PO
[2020-01-15 15:27] LABS: HEMATOCRIT 43.5 % (42.0-52.0); HEMOGLOBIN 14.4 g/dl (13.5-17.5); MEAN CORPUSCULAR HEMOGLOBIN 31.3 pg (27.0-33.0); MEAN CORPUSCULAR HGB CONC 33.1 g/dl (32.0-36.5); MEAN CORPUSCULAR VOLUME 94.6 fl (80.0-96.0); PLATELET COUNT, AUTOMATED 267 10^3/uL (150-450); WHITE BLOOD COUNT 8.5 10^3/uL (4.0-10.0)
[2020-01-15 15:55] LABS: BLOOD UREA NITROGEN 9 MG/DL (7-18); CALCIUM LEVEL 9.5 MG/DL (8.5-10.1); CARBON DIOXIDE LEVEL 31 MEQ/L (21-32); CHLORIDE LEVEL 102 MEQ/L (98-107); CREATININE FOR GFR 0.72 MG/DL (0.70-1.30); GLOMERULAR FILTRATION RATE > 60.0 (>60); GLUCOSE, FASTING 119 MG/DL (70-100); POTASSIUM SERUM 4.9 MEQ/L (3.5-5.1); SODIUM LEVEL 139 MEQ/L (136-145)
[2020-01-15 16:24] LABS: MAU/CREAT RATIO 205.2 MCG/MG (0.0-30.0)
== END ==
LOC: M SFHCPLAZ 09:01
PROVIDERS: ATTEND Internal Medicine
DX: E11.65 Type 2 diabetes mellitus with hyperglycemia (principal); I10 Essential (primary) hypertension

== ENCOUNTER 2021-01-28 04:05 | Emergency (ER) | payer BC ==
[~2021-01-28] VITALS: Ht 160 cm; Wt 133.9 kg
--- OUTSIDE RECORDS SUMMARY | 2021-01-28 04:11 | CCD ---
Author Author [facility] Organization [facility] Address Unknown Phone Unavailable Support Name Relationship Address Phone SEBASTIAN ALBA [address] [place] [address] Marissa Alba ECON [address] [place] [address] Care Team Providers Care Price Economist Name Role Phone Pradip Pfeiffer Unavailable PROBLEMS Type Condition ICD9-CM Code [id number] Code Onset Dates Condition S tatus W/U Status Risk SNOMED Code Notes Problem Depression, unspecified depression type F32.9 Active confirmed 60216098 Problem Chronic diastolic congestive heart failure I50.32 Active confirmed 182923782 Problem Erectile dysfunction, unspecified erectile dysfunction typ e N52.9 Active confirmed 083667938 Problem Obstructive sleep apnea G47.33 Active confirmed 82900081 Problem Morbid (severe) obesity due to excess calories E66 .01 Active confirmed 563127680 Problem Seasonal allergies J30.2 Active confirmed 4 22740635 Problem Essential hypertension I10 Active confirmed 08685883 Problem Type 2 diabetes mellitus wit h hyperglycemia, without long-term current use of insulin E11.65 Active confirmed 63511854 Problem ASCVD (arteriosclerotic cardiovascular disease) I2 5.10 Active confirmed 39170954 Problem Generalized anxiety disorder F41.1 Active confirme d 89605346 ALLERGIES Allergen (clinical drug ingredient) Drug/Non Drug Allergy do cumented on EMR Reaction Allergy Type Onset Date Status morphine Morphine Sulfate([facility] Code:[address]-59) Legs an d Arms swelling Drug Allergy Active Beans Unknown Non Drug Allergy Active ENCOUNTERS from 1975 to 2020-12-04 Encounter Location Date Provider Diagnosis [facility] G[facility] Resident [phone] [place] [address] Nov, Pradip Pfeiffer IMMUNIZATIONS Vaccine Route Administration Date Status Influenza 18 yrs & older Flublok IM Intramuscular July 06, 2019 Administered Pneumococcal Adult 0.5mL Pneumovax 23 IM Intramuscular July 06, 2019 Administered SOCIAL HISTORY Tobacco Use: Social History Observation Description Date Details (start date - stop date) Never Smoker Sex Assigned At : Social History Observation Description Sex Assigned At Unknown Audit Question Answer Notes Total Score: 1 Interpretation: Alcohol Education Drug and Alcohol Question Answer Notes Total Score: 0 Interpretation: No problems reported Alcohol Screening: Question Answer Notes Did you have a drink containing alcohol in the past year? Ye s Points 3 Interpretation Negative How often did you have six or more drinks on one occas ion in the past year? Never (0 points) How many drinks did you have on a typica l day when you were drinking in the past year? 3 or 4 (1 point) How often did you have a drink containing alcohol in t he past year? Two to four times a month (2 points) Tobacco Use: Question Answer Notes Are you a: never smoker REASON FOR REFERRAL No Information VITAL SIGNS No information MEDICATIONS Medication SIG (Take, Route, Frequency, Duration) Notes Start Da te End Date Status Losartan Potassium 100 MG 1 tablet Orally Once a day for 30 Active Tadalafil 20 MG 1 tablet Orally Once a day for 30 day(s) 0 August, Active Claritin 10 MG 1 tablet Orally Once a day for 30 Active Aspirin Adult Low Strength 81 MG 1 tablet Orally Once a day for 30 da ys Active Glucometer as directed three times daily for 99 days 2019 Active Carvedilol 25 MG 1 tablet Orally Twice a day for 30 Active Steglatro 5 MG 1 tablet Orally Once a day for 30 Active Lancets - as directed topically three times daily for 30 Days Apr, Active Fluoxetine HCl 40 MG 1 capsule Orally twice daily for 30 day(s) Jul, Active Alcohol Swabs 70 % as directed topically to fin umm prior to using lancet three times daily for 30 Days Apr, Active COMPRESSION STOCKINGS 20-30 mmHg as directed as directed daily f or 99 days Jan, Active Sildenafil Citrate 50 MG 1 tablet as needed Orally Once a day fo r 30 day(s) Oct, Active Flonase Allergy Relief 50 MCG/ACT 1-2 spray in each no stril Nasally Once a day for 7 day(s) Jun, Active Aspirin 81 MG 1 tablet Orally Once a day Apr, Active Test Strips - as directed topically three times daily for 30 D ays Apr, Active PROzac 40 MG 1 capsule Orally Once a day for 30 Active Furosemide 40 MG Take 1 tablet by mouth once daily Orally Once a day for 30 days Active Trulicity 0.75 MG/0.5ML 1 injection Subcutaneous weekly for 28 Active Carvedilol 25 MG Take 1 tablet by mouth twice daily for 30 Active metFORMIN HCl 1000 MG 1 tablet with a meal Orally Twice a day for 30 Active Atorvastatin Calcium 80MG 1 tablet Orally Once a day for 30 Active PROCEDURES No Information RESULTS No Results REASON FOR VISIT no showed MEDICAL (GENERAL) HISTORY Type Description Date Medical History CHF Medical History HTN Medical History DM Type 2 Medical History AR Surgical History Hernia x3 Hospitalization History Surgical Hospitalization History Colon prolapse Hospitalization History AR Goals Section No Information Health Concerns No Information MEDICAL EQUIPMENT No Information MENTAL STATUS No Information FUNCTIONAL STATUS No Information ASSESSMENTS No Information PLAN OF TREATMENT No Information Insurance Providers Payer Name Payer Address Payer Phone Insured Name Patient Relati onship to Insured Coverage Start Date Coverage End Date [employer] PPO [id number] [facility] [address] SEBASTIAN ALBA self
--- OUTSIDE RECORDS SUMMARY | 2021-01-28 04:11 | CCD ---
Author Author [facility] Organization [facility] Address Unknown Phone Unavailable Support Name Relationship Address Phone SEBASTIAN ALBA GUAR [address] [place] [address] Marissa Alba ECON [address] [place], [place] [id number] Care Team Providers Care Saw Runner Name Role Phone Sarah Anne Unavailable PROBLEMS Type Condition ICD9-CM Code [id number] Code Onset Dates Condition S tatus W/U Status Risk SNOMED Code Notes Problem Depression, unspecified depression type F32.9 Active confirmed 47740266 Problem Chronic diastolic congestive heart failure I50.32 Active confirmed 303739923 Problem Erectile dysfunction, unspecified erectile dysfunction typ e N52.9 Active confirmed 605397621 Problem Obstructive sleep apnea G47.33 Active confirmed 01508191 Problem Morbid (severe) obesity due to excess calories E66 .01 Active confirmed 668513896 Problem Seasonal allergies J30.2 Active confirmed 4 20058824 Problem Essential hypertension I10 Active confirmed 91582708 Problem Type 2 diabetes mellitus wit h hyperglycemia, without long-term current use of insulin E11.65 Active confirmed 76475027 Problem ASCVD (arteriosclerotic cardiovascular disease) I2 5.10 Active confirmed 07504719 Problem Generalized anxiety disorder F41.1 Active confirme d 99805986 ALLERGIES Allergen (clinical drug ingredient) Drug/Non Drug Allergy do cumented on EMR Reaction Allergy Type Onset Date Status morphine Morphine Sulfate([facility] Code:[address]-93) Legs an d Arms swelling Drug Allergy Active Beans Unknown Non Drug Allergy Active ENCOUNTERS from 1974 to 2020-11-11 Encounter Location Date Provider Diagnosis [facility] [address] [facility] [phone] [place] [address] Nov, Sarah Anne IMMUNIZATIONS Vaccine Route Administration Date Status Influenza [...] Education Drug and Alcohol Question Answer Notes Interpretation: No problems reported Total Score: 0 Alcohol Screening: Question Answer Notes Did you [...] Notes Start Da te End Date Status Aspirin 81 MG 1 tablet Orally Once a day Apr, Active metFORMIN HCl 1000 MG 1 tablet with a meal Orally Twice a day for 30 Active Carvedilol 25 MG Take 1 tablet by mouth twice daily for 30 Active Glucometer as directed three times daily for 99 days 2019 Active Carvedilol 25 MG 1 tablet Orally Twice a day for 30 Active Test Strips - as directed topically three times daily for 30 D ays Apr, Active Claritin 10 MG 1 tablet Orally Once a day for 30 Active Atorvastatin Calcium 80MG 1 tablet Orally Once a day for 30 Active Furosemide 40 MG Take 1 tablet by mouth once daily Orally Once a day for 30 days Active Trulicity 0.75 MG/0.5ML 1 injection Subcutaneous weekly for 28 Active Alcohol Swabs 70 % as directed topically to fin umm prior to using lancet three times daily for 30 Days Apr, Active Flonase Allergy Relief 50 MCG/ACT 1-2 spray in each no stril Nasally Once a day for 7 day(s) Jun, Active Lancets - as directed topically three times daily for 30 Days Apr, Active Sildenafil Citrate 50 MG 1 tablet as needed Orally Once a day fo r 30 day(s) Oct, Active Fluoxetine HCl 40 MG 1 capsule Orally twice daily for 30 day(s) Jul, Active Steglatro 5 MG 1 tablet Orally Once a day for 30 Active Aspirin Adult Low Strength 81 MG 1 tablet Orally Once a day for 30 da ys Active Losartan Potassium 100 MG 1 tablet Orally Once a day for 30 Active COMPRESSION STOCKINGS 20-30 mmHg as directed as directed daily f or 99 days Jan, Active Tadalafil 20 MG 1 tablet Orally Once a day for 30 day(s) 0 August, Active PROzac 40 MG 1 capsule Orally Once a day for 30 Active PROCEDURES No Information RESULTS No Results REASON FOR VISIT Sildenafil Citrate 50 MG Tablet MEDICAL (GENERAL) HISTORY Type Description Date Medical History CHF Medical History HTN Medical History DM Type 2 Medical History [place] Surgical History Hernia x3 Hospitalization History Surgical Hospitalization History Colon prolapse Hospitalization History [place] Goals Section No Information Health Concerns No Information MEDICAL EQUIPMENT No Information MENTAL STATUS No Information FUNCTIONAL STATUS No Information ASSESSMENTS No Information PLAN OF TREATMENT Medication Medication Name Sig Start Date Stop Date Atorvastatin Calcium 80MG 1 tablet Orally Once a day for 30 Trulicity 0.75 MG/0.5ML 1 injection Subcutaneous weekly for 28 Test Strips - as directed topically three times daily for 30 D ays Apr, Furosemide 40 MG Take 1 tablet by mouth once daily Orally Once a day for 30 days PROzac 40 MG 1 capsule Orally Once a day for 30 Sildenafil Citrate 50 MG 1 tablet as needed Orally Once a da y for 30 day(s) Oct, Steglatro 5 MG 1 tablet Orally Once a day for 30 Lancets - as directed topically three times daily for 30 D ays Apr, Aspirin Adult Low Strength 81 MG 1 tablet Orally Once a day for 30 days Alcohol Swabs 70 % as directed topically to fin umm prior to using lancet three times daily for 30 Days Apr, metFORMIN HCl 1000 MG 1 tablet with a meal Orally Twice a day fo r 30 Carvedilol 25 MG Take 1 tablet by mouth twice daily for 30 Carvedilol 25 MG 1 tablet Orally Twice a day for 30 Losartan Potassium 100 MG 1 tablet Orally Once a day for 30 Claritin 10 MG 1 tablet Orally Once a day for 30 Next Appt Details Provider Name:Pradip Pfeiffer, 2020-0 12-02 02:30:00 PM, [address] [facility], , [place], [address], Insurance Providers Payer Name Payer Address Payer Phone Insured Name Patient Relati onship to Insured Coverage Start Date Coverage End Date BCJANNY NAVARRETE [facility] [id number] [facility] [place] [address] SEBASTIAN ALBA self
--- OUTSIDE RECORDS SUMMARY | 2021-01-28 04:11 | CCD ---
Author Author [facility] Organization [facility] Address Unknown Phone Unavailable Support Name Relationship Address Phone SEBASTIAN ALBA GUAR [address] [place], [place] [phone] Marissa Alba ECON [address] [place], [place] [address] Care Team Providers Care Cork Compounder Name Role Phone Sarah Anne Unavailable PROBLEMS Type Condition ICD9-CM Code [id number] Code Onset Dates Condition S tatus W/U Status Risk SNOMED Code Notes Problem Depression, unspecified depression type F32.9 Active confirmed 33815679 Problem Chronic diastolic congestive heart failure I50.32 Active confirmed 148461011 Problem Erectile dysfunction, unspecified erectile dysfunction typ e N52.9 Active confirmed 422773323 Problem Obstructive sleep apnea G47.33 Active confirmed 82884020 Problem Morbid (severe) obesity due to excess calories E66 .01 Active confirmed 206483704 Problem Seasonal allergies J30.2 Active confirmed 4 84039536 Problem Essential hypertension I10 Active confirmed 34508320 Problem Type 2 diabetes mellitus wit h hyperglycemia, without long-term current use of insulin E11.65 Active confirmed 81823458 Problem ASCVD (arteriosclerotic cardiovascular disease) I2 5.10 Active confirmed 98234071 Problem Generalized anxiety disorder F41.1 Active confirme d 62537001 ALLERGIES Allergen (clinical drug ingredient) Drug/Non Drug Allergy do cumented on EMR Reaction Allergy Type Onset Date Status morphine Morphine Sulfate([facility] Code:[address]-40) Legs an d Arms swelling Drug Allergy Active Beans Unknown Non Drug Allergy Active ENCOUNTERS from 1974 to 2020-11-12 Encounter Location Date Provider Diagnosis [facility] [address] [facility] [phone] [place] [address] Oct, Sarah Anne Chronic diastolic congestive heart failure I50.32 ; Type 2 diabetes mellitus with hyperglycemia, without long-term current use of insulin E11.65 ; Erectile dysfunction, unspecified erectile dysfunction type N52.9 ; ASCVD (arteriosclerotic cardiovascular disease) I25.10 and Essential hypertension I10 IMMUNIZATIONS Vaccine Route Administration Date Status Influenza [...] Information RESULTS No Results REASON FOR VISIT all meds refilled MEDICAL (GENERAL) HISTORY Type Description Date Medical History CHF Medical History HTN Medical History DM Type 2 Medical History [place] Surgical History Hernia x3 Hospitalization History Surgical Hospitalization History Colon prolapse Hospitalization History [place] Goals Section No Information Health Concerns No Information MEDICAL EQUIPMENT No Information MENTAL STATUS No Information FUNCTIONAL STATUS No Information ASSESSMENTS Encounter Date Diagnosis Assessment Notes Treatment Notes Treatm ent Clinical Notes Oct, Chronic diastolic congestive heart failure (ICD- 10 - I50.32) c/w meds recommend upcoming reeval for optimization Oct, Type 2 diabetes mellitus wit h hyperglycemia, without long-term current use of insulin (ICD-10 - E11.65) c/w meds recheck hba1c, bmp, microalbumin recommend upcoming reeval for optimization Oct, Erectile dysfunction, unspec ified erectile dysfunction type (ICD-10 - N52.9) d/c tadalfil start sildenafil 50mg. pt told me he was on sildenafil 100mg in the past and tolerated it well. pt will increase to 100mg if 50mg is inadequate. will reasses at next visit. discussed side effects including hyptension, lightheadedness. pt is aware and will d/c 100mg if these sx present Oct, ASCVD (arteriosclerotic cardiovascular d isease) (ICD-10 - I25.10) c/w atorvastatin repeat lipid panel Oct, Essential hypertension (ICD-10 - I10) c/w meds recommend upcoming reeval for optimization PLAN OF TREATMENT Medication Medication Name Sig [...] tablet Orally Once a day for 30 Treatment Notes Assessment Notes Clinical Notes Chronic diastolic congestive heart failure c/w medsrecommend upcoming reeval for optimization Type 2 diabetes mellitus with hyperglyce blaine, without long-term current use of insulin c/w medsrecheck hba1c, bmp, microalbuminrecommend upcoming reeval for optimization Erectile dysfunction, unspecified erectile dysfunction type d/c tadalfilstart sildenafil 50mg. pt told me he was on sildenafil 100mg in the past and tolerated it well. pt will increase to 100mg if 50mg is inadequate. will reasses at next visit. discussed side effects including hyptension, lightheadedness. pt is aware and will d/c 100mg if these sx present ASCVD (arteriosclerotic cardiovascular disease) c/w atorvastatinrepeat lipid panel Essential hypertension c/w medsrecommend upcoming reeval for optimization Treatment Notes Test Name Order Date HEMOGLOBIN A1c 2020-11-06 LIPID PANEL (CARDIAC RISK) 2020-11-06 Basic Metabolic Profile (BMP) 2020-11-06 MICROALBUMIN RANDOM 2020-11-06 Next Appt Details Provider Name:Pradip Pfeiffer, 2020-12-02 02:30:00 PM, [address] [facility], , [place], [address], Insurance Providers Payer Name Payer Address Payer Phone Insured Name Patient Relati onship to Insured Coverage Start Date Coverage End Date [facility] [id number] [facility] [place] [facility] [place] [address] SEBASTIAN ALBA self
--- OUTSIDE RECORDS SUMMARY | 2021-01-28 04:11 | CCD ---
Author Author [facility] Address Unknown Phone Unavailable Support Name Relationship Address Phone DELILAH MALHOTRA Next Of Kin [address] [place] [address] DELILAH MALHOTRA(PROXY) Next Of Kin [address] [place] [address] [place] Next Of Kin [address] [place] [address] [facility] [place] [address] Unavailable ANN-MARIE ALBA Next Of Kin [address] [place] [address] Ann-Marie Alba ECON [address] [place] [address] Unavailable Re-disclosure Warning The records that you are about to access may contain information from federally-assisted alcohol or drug abuse programs. If such information is present, then the following federally mandated warning applies: This information has been disclosed to you from records protected by federal confidentiality rules (42 CFR part 2). The federal rules prohibit you from making any further disclosure of this information unless further disclosure is expressly permitted by the written consent of the person to whom it pertains or as otherwise permitted by 42 CFR part 2. A general authorization for the release of medical or other information is NOT sufficient for this purpose. The Federal rules restrict any use of the information to criminally investigate or prosecute any alcohol or drug abuse patient.The records that you are about to access may contain highly sensitive health information, the redisclosure of which is protected by Article 27-F of the [facility] Public Health law. If you continue you may have access to information: Regarding HIV / AIDS; Provided by facilities licensed or operated by the [facility] Office of Mental Health; or Provided by the [facility] Office for People With Developmental Disabilities. If such information is present, then the following [facility] mandated warning applies: This information has been disclosed to you from confidential records which are protected by state law. State law prohibits you from making any further disclosure of this information without the specific written consent of the person to whom it pertains, or as otherwise permitted by law. Any unauthorized further disclosure in violation of state law may result in a fine or chcf sentence or both. A general authorization for the release of medical or other information is NOT sufficient authorization for further disc losure. Family History Family Member Name Family Member Gender Family Member Status Date o f Status Description Data Source(s) Unknown Female Problem MEDENT ([facility], ) Unknown Female Problem MEDENT ([facility], ) Unknown Female Problem [facility]ENT ([facility], ) Unknown Female Problem MEDENT ([facility] ) Unknown Female Problem [facility] ([facility] ) Unknown Female Problem [facility] ([facility] ) Unknown Female Problem MEDENT ([facility], ) Unknown Female Problem MEDENT ([facility], ) Unknown Female Problem MEDENT ([facility], ) Unknown Female Problem MEDENT ([facility]) Encounters Encounter Providers Location Date Indications Data Source(s ) Unknown [address] [facility] [place] [address] 12/02/2020 12:00:00 AM EDT eCW1 ([facility]) Unknown [address] [facility] [place] [address] 11/11/2020 12:00:00 AM EDT eCW1 ([facility]) Unknown [address] [facility] [place] [address] 11/06/2020 12:00:00 AM EDT eCW1 ([facility]) Unknown [address] [facility] [place] [address] 11/06/2020 12:00:00 AM EDT eCW1 ([facility]) Immunizations Vaccine Date Status Description Data Source(s) COVID-19 VACCINE Pfizer 06/30/2020 12:00:00 AM EDT completed [facility] Vaccine Series Complete: YESThis Data wa s Submitted to [facility] [employer]. COVID-19 VACCINE Pfizer 06/09/2020 12:00:00 AM EST completed [facility] Vaccine Series Complete: NOThis Data was Submitted to [facility] [employer]. Medications Medication Brand Name Start Date Product Form Dose Route Admi nistrative Instructions Pharmacy Instructions Status Indications Reaction Description Data Source(s) sildenafil 50 MG Oral Tablet Sildenafil Citrate 50 MG Silden afil Citrate 50 MG 11/07/2020 12:00:00 AM EDT 1.0 {tablet_as_needed} active Sildenafil Citrate 50 MG eCW1 ([facility]) sildenafil 50 MG Oral Tablet Sildenafil Citrate 50 MG Silden afil Citrate 50 MG 11/07/2020 12:00:00 AM EDT 1.0 {tablet_as_needed} active Sildenafil Citrate 50 MG eCW1 ([facility]) sildenafil 50 MG Oral Tablet Sildenafil Citrate 50 MG Silden afil Citrate 50 MG 11/07/2020 12:00:00 AM EDT 1.0 {tablet_as_needed} active Sildenafil Citrate 50 MG eCW1 ([facility]) sildenafil 50 MG Oral Tablet Sildenafil Citrate 50 MG Silden afil Citrate 50 MG 11/07/2020 12:00:00 AM EDT 1.0 {tablet_as_needed} active Sildenafil Citrate 50 MG eCW1 ([facility]) COMPRESSION STOCKINGS 20-30 mmHg UNK 01/15/2020 12:00:00 AM EDT active COMPRESSION STOCKINGS 20-30 mmHg eCW1 ([facility]) COMPRESSION STOCKINGS 20-30 mmHg UNK 01/15/2020 12:00:00 AM EDT active COMPRESSION STOCKINGS 20-30 mmHg eCW1 ([facility]) COMPRESSION STOCKINGS 20-30 mmHg UNK 01/15/2020 12:00:00 AM EDT active COMPRESSION STOCKINGS 20-30 mmHg eCW1 ([facility]) COMPRESSION STOCKINGS 20-30 mmHg UNK 01/15/2020 12:00:00 AM EDT active COMPRESSION STOCKINGS 20-30 mmHg eCW1 ([facility]) COMPRESSION STOCKINGS 20-30 mmHg UNK 01/15/2020 12:00:00 AM EDT active COMPRESSION STOCKINGS 20-30 mmHg eCW1 ([facility]) Insurance Providers Payer name Policy type / Coverage type Policy ID Covered democrat ID Covered democrat's relationship to ontiveros Policy Ontiveros Plan Information BS Jazz Trad/MX Commercial [id number] Self 802 O BLUE [id number] SP [id number] O BLUE [id number] SP [id number] [employer] Health Maintenance Organization (HMO) [id number] Self [id number] [employer] [facility] Health Maintenance Organization (O) [id number] Self [id number] [employer] [place] ([place] Commercial [id number] Self BS [place] Commercial [id number] Self BCBS [place] O [id number] SP [id number] SELF PAY [id number] SP [id number] BCBS [place] PPO [id number] SP [id number] [employer] BCBS B [id number] S [id number] Problems, Conditions, and Diagnoses No Information Surgeries/Procedures No Information Results No Information Social History Code Duration Value Status Description Data Source(s ) Smoking 12/02/2020 12:00:00 AM EDT Never Smoker completed Never S moker eCW1 ([facility]) Smoking 01/22/2020 12:00:00 AM EDT Never Smoker completed Never S moker eCW1 ([facility]) Smoking 01/22/2020 12:00:00 AM EDT Never Smoker completed Never S moker eCW1 ([facility]) Smoking 01/22/2020 12:00:00 AM EDT Never Smoker completed Never S moker eCW1 ([facility]) Smoking 01/22/2020 12:00:00 AM EDT Never Smoker completed Never S moker eCW1 ([facility]) Patient Treatment Plan of Care Planned Activity Planned Date Details Description Data Source (s) sildenafil 50 MG Oral Tablet 11/07/2020 12:00:00 AM EDT eCW1 ([facility]) sildenafil 50 MG Oral Tablet 11/07/2020 12:00:00 AM EDT eCW1 ([facility]) sildenafil 50 MG Oral Tablet 11/07/2020 12:00:00 AM EDT eCW1 ([facility])
--- OUTSIDE RECORDS SUMMARY | 2021-01-28 04:11 | CCD ---
Author Author [facility] Organization [facility] Address Unknown Phone Unavailable Support Name Relationship Address Phone SEBASTIAN ALBA GUAR [address] [place], [place] [phone] Marissa Alba ECON [address] [place], [place] [address] Care Team Providers Care Helicopter Utility Aircrewman Name Role Phone Sarah Anne Unavailable PROBLEMS Type Condition ICD9-CM Code USM44-[id number] Code Onset Dates Condition S tatus W/U Status Risk SNOMED Code Notes Problem Depression, unspecified depression type F32.9 Active confirmed 99379521 Problem Chronic diastolic congestive heart failure I50.32 Active confirmed 785112992 Problem Erectile dysfunction, unspecified erectile dysfunction typ e N52.9 Active confirmed 070522220 Problem Obstructive sleep apnea G47.33 Active confirmed 77036644 Problem Morbid (severe) obesity due to excess calories E66 .01 Active confirmed 612056756 Problem Seasonal allergies J30.2 Active confirmed 4 26681684 Problem Essential hypertension I10 Active confirmed 79599102 Problem Type 2 diabetes mellitus wit h hyperglycemia, without long-term current use of insulin E11.65 Active confirmed 14524558 Problem ASCVD (arteriosclerotic cardiovascular disease) I2 5.10 Active confirmed 29977037 Problem Generalized anxiety disorder F41.1 Active confirme d 75827219 ALLERGIES Allergen (clinical drug ingredient) Drug/Non Drug Allergy do cumented on EMR Reaction Allergy Type Onset Date Status morphine Morphine Sulfate([facility] Code:[address]-90) Legs an d Arms swelling Drug Allergy Active Beans Unknown Non Drug Allergy Active ENCOUNTERS from 1974 to 2020-11-16 Encounter Location Date Provider Diagnosis [facility] [address] [facility] [phone] [place] [address] Oct, Sarah Anne IMMUNIZATIONS Vaccine Route Administration Date [...] Information RESULTS No Results REASON FOR VISIT appointment? MEDICAL (GENERAL) HISTORY Type Description Date Medical History CHF Medical History HTN Medical History DM Type 2 Medical History [place] Surgical History Hernia x3 Hospitalization History Surgical Hospitalization History Colon prolapse Hospitalization History [place] Goals Section No Information Health Concerns No [...] Next Appt Details Provider Name:Pradip Pfeiffer, 2020-0 - 02:30:00 PM, [address] [facility] [address] , , [place], [address], Insurance Providers Payer Name Payer Address Payer Phone Insured Name Patient Relati onship to Insured Coverage Start Date Coverage End Date BCBS JET NAVARRETE [facility] [id number] [facility] [address] SEBASTIAN ALBA self
[2021-01-28] MEDS ORDERED: TRUL10IN (04:24)
[2021-01-28] MEDS ORDERED: FLUO40CA (04:24)
[2021-01-28] MEDS ORDERED: ATOR80TA59 (04:24)
[2021-01-28] MEDS ORDERED: TAGA200T3 PO (04:24)
[2021-01-28] MEDS ORDERED: LORA-674 (04:24)
[2021-01-28] MEDS ORDERED: BENZONATATE 100MG CAPSULE PO ONE ×2 (07:05→10:10)
--- OUTSIDE RECORDS SUMMARY | 2021-01-28 07:22 | CCD ---
Author Author [facility] Organization [facility] Address Unknown Phone Unavailable Support Name Relationship Address Phone DELILHA MALHOTRA Next Of Kin [address] [place] [address] DELILAH MALHOTRA(PROXY) Next Of Kin [address] [place] [address] [place] Next Of Kin [address] [place] [address] [facility] [address] [address] Unavailable ANN-MARIE ALBA Next Of Kin [address] [place] [address] Ann-Marie Alba ECON [address] [place] [address] Unavailable Re-disclosure Warning The records that you [...] is protected by Article 27-F of the [facility] Public Health law. If you continue you may have access to information: Regarding HIV / AIDS; Provided by facilities licensed or operated by the [facility] Office of Mental Health; or Provided by the [facility] Office for People With Developmental Disabilities. If such information is present, then the following [facility] mandated warning applies: This information has [...] law may result in a fine or long term sentence or both. A general authorization for the release of medical or other information is NOT sufficient authorization for further disc losure. Family History Family Member Name Family Member Gender Family Member Status Date o f Status Description Data Source(s) Unknown Female Problem MEDENT ([facility], ) Unknown Female Problem MEDENT ([facility], ) Unknown Female Problem [facility]ENT ([facility], ) Unknown Female Problem [facility]ENT ([facility], ) Unknown Female Problem [facility]ENT ([facility], ) [facility] Female Problem MEDENT ([facility], ) Unknown Female Problem [facility]ENT ([facility], ) Unknown Female Problem MEDENT ([facility], ) Unknown Female Problem MEDENT ([facility], ) Unknown Female Problem MEDENT ([facility]) Encounters Encounter Providers Location Date Indications Data Source(s ) Unknown [address] [facility] [address] [place] [address] 12/02/2020 12:00:00 AM EDT eCW1 ([facility]) Unknown [address] [facility] [address] [place] [address] 11/11/2020 12:00:00 AM EDT eCW1 ([facility]) Unknown [address] [facility] [address] [place] [address] 11/06/2020 12:00:00 AM EDT eCW1 ([facility]) Unknown [address] [facility] [address] [place] [address] 11/06/2020 12:00:00 AM EDT eCW1 ([facility]) Immunizations Vaccine Date Status Description Data Source(s) COVID-19 VACCINE Pfizer 06/30/2020 12:00:00 AM EDT completed [facility] Vaccine Series Complete: YESThis Data wa s Submitted to [facility] Via [employer]. COVID-19 VACCINE Pfizer 06/09/2020 12:00:00 AM EST completed [facility] Vaccine Series Complete: NOThis Data was Submitted to [facility] Via [employer]. Medications Medication Brand Name Start Date Product Form Dose Route Admi nistrative Instructions Pharmacy Instructions Status Indications Reaction Description Data Source(s) sildenafil 50 MG Oral Tablet Sildenafil Citrate 50 MG Silden afil Citrate 50 MG 11/07/2020 12:00:00 AM EDT 1.0 {tablet_as_needed} active Sildenafil Citrate 50 MG [facility] sildenafil 50 MG Oral Tablet Sildenafil Citrate 50 MG Silden afil Citrate 50 MG 11/07/2020 12:00:00 AM EDT 1.0 {tablet_as_needed} active Sildenafil Citrate 50 MG [facility]) sildenafil 50 MG Oral Tablet Sildenafil Citrate 50 MG Silden afil Citrate 50 MG 11/07/2020 12:00:00 AM EDT 1.0 {tablet_as_needed} active Sildenafil Citrate 50 MG [facility]CW[facility]) sildenafil 50 MG Oral Tablet Sildenafil Citrate 50 MG Silden afil Citrate 50 MG 11/07/2020 12:00:00 AM EDT 1.0 {tablet_as_needed} active Sildenafil Citrate 50 MG [facility]CW[facility]) COMPRESSION STOCKINGS 20-30 mmHg UNK 01/15/2020 12:00:00 AM EDT active COMPRESSION STOCKINGS 20-30 mmHg [facility]) COMPRESSION STOCKINGS 20-30 mmHg UNK 01/15/2020 12:00:00 AM EDT active COMPRESSION STOCKINGS 20-30 mmHg [facility]) COMPRESSION STOCKINGS 20-30 mmHg UNK 01/15/2020 12:00:00 AM EDT active COMPRESSION STOCKINGS 20-30 mmHg [facility]) COMPRESSION STOCKINGS 20-30 mmHg UNK 01/15/2020 12:00:00 AM EDT active COMPRESSION STOCKINGS 20-30 mmHg [facility]) COMPRESSION STOCKINGS 20-30 mmHg UNK 01/15/2020 12:00:00 AM EDT active COMPRESSION STOCKINGS 20-30 mmHg [facility]) Insurance Providers Payer name Policy type / Coverage type Policy ID Covered green party ID Covered green party's relationship to ontiveros Policy Ontiveros Plan Information BS Jazz Trad/[place] Commercial [id number] Self 802 O BLUE [id number] SP [id number] O BLUE [id number] SP [id number] [employer] Health Maintenance Organization (HMO) [id number] Self [id number] [employer] [facility] Health Maintenance Organization (O) [id number] Self [id number] BS Healthy [place] ([place] Commercial [id number] Self BS [place] Commercial [id number] Self BCBS [place] O [id number] SP [id number] SELF PAY [id number] SP [id number] BCBS [place] PPO [id number] SP [id number] [employer] BC[employer] B [id number] S [id number] Problems, Conditions, and Diagnoses No Information Surgeries/Procedures No Information Results No Information Social History Code Duration Value Status Description Data Source(s ) Smoking 12/02/2020 12:00:00 AM EDT Never Smoker completed Never S moker [facility]) Smoking 01/22/2020 12:00:00 AM EDT Never Smoker completed Never S moker [facility] ([facility]) Smoking 01/22/2020 12:00:00 AM EDT Never Smoker completed Never S moker [facility]CW[facility] ([facility]) Smoking 01/22/2020 12:00:00 AM EDT Never Smoker completed Never S moker [facility]CW[facility]) Smoking 01/22/2020 12:00:00 AM EDT Never Smoker completed Never S moker [facility]) Patient Treatment Plan of Care Planned Activity Planned Date Details Description Data Source (s) sildenafil 50 MG Oral Tablet 11/07/2020 12:00:00 AM EDT [facility] sildenafil 50 MG Oral Tablet 11/07/2020 12:00:00 AM EDT [facility]) sildenafil 50 MG Oral Tablet 11/07/2020 12:00:00 AM EDT [facility])
[2021-01-28 07:55] LABS: BASO % 0.4 % (0.0-1.0); EOS # 0.1 10^3/uL (0.0-0.5); EOS % 0.7 % (0.0-3.0); HEMATOCRIT 43.6 % (42.0-52.0); HEMOGLOBIN 14.3 g/dl (13.5-17.5); LYMPH # 1.2 10^3/uL (1.5-5.0); LYMPH % 16.7 % (24.0-44.0); MEAN CORPUSCULAR HEMOGLOBIN 30.2 pg (27.0-33.0); MEAN CORPUSCULAR HGB CONC 32.8 g/dl (32.0-36.5); MEAN CORPUSCULAR VOLUME 92.2 fl (80.0-96.0); MONO # 0.6 10^3/uL (0.0-0.8); MONO % 7.9 % (2.0-8.0); NEUTROPHILS # 5.3 10^3/uL (1.5-8.5); NEUTROPHILS % 73.9 % (36.0-66.0); PLATELET COUNT, AUTOMATED 206 10^3/uL (150-450); RED BLOOD COUNT 4.73 10^6/uL (4.30-6.10); WHITE BLOOD COUNT 7.1 10^3/uL (4.0-10.0)
[2021-01-28] MEDS: COMBIVENT RESPIMAT 100-20MCG INHALER 4GM INH SCH ×3 (08:12→09:15)
[2021-01-28 08:22] LABS: CK-MB VALUE MASS 3.2 NG/ML (<3.6); CPK CREATINE PHOSPHOKINASE 446 U/L (39-308); INR 0.94; MB/CK RELATIVE INDEX 0.72 (< OR =4); NT-PRO BNP 70 PG/ML (<125); PROTHROMBIN TIME 12.9 SECONDS (12.7-14.5); TROPONIN I < 0.02 NG/ML (< 0.10)
[2021-01-28 08:23] LABS: PARTIAL THROMBOPLASTIN TIME 38.9 SECONDS (25.9-37.0)
--- NOTE | 2021-01-28 08:46 | REP ---
INDICATION: SOB, COUGH. COMPARISON: 04/25/2019. TECHNIQUE: Single portable AP view of the chest was performed. FINDINGS: Cardiomegaly is again noted similar to the prior study. There is elevation of the right hemidiaphragm unchanged. There is mild vascular congestion which appears similar to the prior study. No infiltrate is seen. The mediastinal silhouette is unchanged. IMPRESSION: Cardiomegaly and mild vascular congestion appearing similar to the prior study. No acute infiltrate seen. <Electronically signed by José Miguel Velarde > 01/28/21 0834
[2021-01-28] MEDS ORDERED: TESS100C PO (09:34)
[2021-01-28] MEDS ORDERED: ALBUTEROL 90 MCG/ACT 8GM HFA INHALER INH ONE (10:10)
[2021-01-28] MEDS ORDERED: PROAAER10 INH (11:01)
[2021-01-28 11:07] VITALS: BP 157/78
--- NOTE | 2021-01-29 13:25 | ECGEPIP ---
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
== END 2021-01-28 11:09 | disposition home or self-care (01) ==
LOC: M ED 04:05
DX: U07.1 COVID-19 (principal); R06.02 Shortness of breath; R05.9 Cough, unspecified; I11.0 Hypertensive heart disease with heart failure; E11.9 Type 2 diabetes mellitus without complications; J45.909 Unspecified asthma, uncomplicated; Z79.82 Long term (current) use of aspirin; Z79.899 Other long term (current) drug therapy

== ENCOUNTER 2021-01-31 08:02 | Outpatient (CLI) | payer BC ==
--- NOTE | 2021-01-28 11:05 | HPEPDOC ---
[facility] Medical History & Physical Date of Admission Jan 28, 2021 Date of Service: Jan 28, 2021 History and Physical Chief complaint: Who presented to the ER with shortness of breath History of present illness: Patient is a 45-year-old male with PMHx of Diastolic CHF, Hx of NSTEMI (2014), HTN, NIDDM2, DLP, Depression, who presented to the hospital with complaints of shortness of breath and cough for the last 5 days. Patient at that he had bronchitis and came into the ER today for antibiotics and steroids, however was found to be COVID19 positive. Patient reports shortness of breath and a nonproductive cough reported subjective fevers at home. Denies any chills. Reports chest pain worse with coughing. Denies any nausea, vomiting, abdominal pain. Does report constipation. His last bowel movement was yesterday. Denies any urinary discomfort. Reports his appetite is fairly normal and is unsure of any changes in his weight. Patient denies any leg swelling. Patient was that he has received both doses of the Pfizer vaccine as well as influenza vaccine. 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 Review of Systems: 10 point review of systems complete, all negative otherwise stated in HPI Physical exam: - Vitals: BP [141/71], HR [91], RR [22], Sat [92%RA], Temp [98.7F] - General: Lying in bed, No acute distress, Speaking in full sentences, AAOx3 - HEENT: NC, AT, PERRLA - CVS: RRR, +S1S2 - Lungs: Fair air entry bilaterally, No appreciable wheezing / rales / rhonchi - Abdomen: Soft, Non-distended, Non-tender - Extremities: No lower extremity edema, No calf tenderness - Neuro: No focal motor or sensory deficit - Skin: No visible rashes Labs: See below Imaging: See below EKG: See below Assessment and Plan: COVID19 - Patient has reported symptoms for the last 5 days - Has tested positive on 01/28 - Physical was unrevealing - Patient is not requiring any supplemental oxygen; exertional saturation is 93% - Patient has consented for monoclonal antibody infusion; discussed risks and benefits and patient has signed consent paperwork Chronic Diastolic CHF - Prior ECHO with evidence of grade 3/grade 4 diastolic dysfunction - No evidence of exacerbation - c/w Furosemide Hx of NSTEMI (2014) - Denies any typical chest pain - Troponin negative - c/w Carvedilol, Losartan, Atorvastatin, ASA 81 HTN - BP well controlled - c/w Furosemide, Carvedilol and Losartan NIDDM2 - c/w Metformin and Trulicity DLP - c/w Atorvastatin and ASA 81 Depression - c/w Fluoxetine DVT prophylaxis - Will c/w early ambulation Home Medications Scheduled Aspirin (Aspir 81) 81 Mg Tablet.dr, 81 MG PO DAILY Benzonatate (Tessalon Perle) 100 Mg Capsule, 1 CAP PO TID for cough Carvedilol (Carvedilol) 25 Mg Tablet, 1 TAB PO BID Cimetidine (Tagamet Hb) 200 Mg Tablet, 200 MG PO DAILY for heartburn Furosemide (Lasix) 40 Mg Tablet, 1 TAB PO DAILY Losartan Potassium (Losartan Potassium) 100 Mg Tablet, 1 TAB PO DAILY Metformin HCl (Metformin HCl) 1,000 Mg Tablet, 1 TAB PO BID Scheduled PRN Albuterol Sulfate (Proair Hfa) 8.5 Gm Hfa.aer.ad, 2 PUFF INH Q4-6HP PRN for wheezing Ibuprofen (Ibuprofen) 600 Mg Tab, 600 MG PO Q6H PRN for PAIN Naproxen (Naproxen) 500 Mg Tab, 500 MG PO BIDP PRN for PAIN OR FEVER Miscellaneous Medications Atorvastatin Calcium (Atorvastatin Calcium) 80 Mg Tablet Dulaglutide (Trulicity) 0.75 Mg/0.5 Ml Pen.injctr Fluoxetine Hcl (Fluoxetine HCl) 40 Mg Capsule Loratadine (Loratadine) 10 Mg Tablet Allergies Coded Allergies: BEANS (Verified Allergy, Intermediate, Swelling in legs, 07/25/17) morphine (Verified Allergy, Unknown, leg and arm swelling, 04/25/19) RYAN BENITO MD Jan 28, 2021 11:05
[~2021-01-31] VITALS: Ht 157.5 cm; Wt 134.0 kg
[~2021-01-31 08:02] MED LIST changes: +ACETAMINOPHEN TAB 650MG DOSE (2X325MG) PO PRN; +ALBUTEROL 90 MCG/ACT 8GM HFA INHALER INH PRN; +ALBUTEROL SULFATE 2.5 MG/0.5 ML INH NEB SOLN INH PRN; +ATOR80TA59; +BAMLANIVIMAB 700 MG, ETESEVIMAB 1,400 MG in NS 250 ML IV ONE; +CASIRIVIMAB/IMDEVIMAB 1,200 MG in NS 250 ML IV ONE; +EPINEPHrine INJ 1 MG/ML 1ML AMP IM PRN; +FLUO40CA; +LORA-674; +NS 1,000 ML IV SCH; +PROAAER10 INH; +TAGA200T3 PO; +TESS100C PO; +TRUL10IN; +diphenhydrAMINE 50MG/ML VIAL (J1200) IV PRN; +methylPREDNISolone 125MG 2ML VIAL IV PRN
[2021-01-31] MEDS ORDERED: ACETAMINOPHEN TAB 650MG DOSE (2X325MG) PO PRN (12:25)
[2021-01-31] MEDS ORDERED: diphenhydrAMINE 50MG/ML VIAL (J1200) IV PRN (12:25)
[2021-01-31] MEDS ORDERED: NS 1,000 ML IV SCH (12:25)
[2021-01-31] MEDS ORDERED: ALBUTEROL SULFATE 2.5 MG/0.5 ML INH NEB SOLN INH PRN (12:25)
[2021-01-31] MEDS ORDERED: ALBUTEROL 90 MCG/ACT 8GM HFA INHALER INH PRN (12:25)
[2021-01-31] MEDS ORDERED: EPINEPHrine INJ 1 MG/ML 1ML AMP IM PRN (12:30)
[2021-01-31] MEDS ORDERED: methylPREDNISolone 125MG 2ML VIAL IV PRN (12:30)
[2021-01-31] MEDS ORDERED: BAMLANIVIMAB 700 MG, ETESEVIMAB 1,400 MG in NS 250 ML IV ONE (13:00)
[2021-01-31 13:24] VITALS: BP 151/101
[2021-01-31 13:55] VITALS: BP 151/90
[2021-01-31 14:35] VITALS: BP 183/94
[2021-01-31 15:33] VITALS: BP 182/93
== END 2021-01-31 15:45 | disposition home or self-care (01) ==
LOC: M OPCLI4 08:02
PROVIDERS: ATTEND Internal Medicine
DX: U07.1 COVID-19 (principal); Z88.6 Allergy status to analgesic agent

== ENCOUNTER 2021-01-31 09:08 | Emergency (ER) | payer BC ==
[~2021-01-31] VITALS: Ht 157.5 cm; Wt 134.1 kg
[~2021-01-31 09:08] MED LIST changes: -ACETAMINOPHEN TAB 650MG DOSE (2X325MG) PO PRN; -ALBUTEROL 90 MCG/ACT 8GM HFA INHALER INH PRN; -ALBUTEROL SULFATE 2.5 MG/0.5 ML INH NEB SOLN INH PRN; -BAMLANIVIMAB 700 MG, ETESEVIMAB 1,400 MG in NS 250 ML IV ONE; -CASIRIVIMAB/IMDEVIMAB 1,200 MG in NS 250 ML IV ONE; -EPINEPHrine INJ 1 MG/ML 1ML AMP IM PRN; -NS 1,000 ML IV SCH; -diphenhydrAMINE 50MG/ML VIAL (J1200) IV PRN; -methylPREDNISolone 125MG 2ML VIAL IV PRN
--- OUTSIDE RECORDS SUMMARY | 2021-01-31 09:15 | CCD ---
Author Author [facility] Organization [facility] Address Unknown Phone Unavailable Care Team Providers Care Manager Of Organizational Development Name Role Phone Rosa Geeta Unavailable PROBLEMS Type Condition ICD9-CM Code SZZ80-OC Code Onset Dates Condition S tatus W/U Status Risk SNOMED Code Notes Problem Depression, unspecified depression type F32.9 Active confirmed 29235472 Problem Chronic diastolic congestive heart failure I50.32 Active confirmed 115430542 Problem Erectile dysfunction, unspecified erectile dysfunction typ e N52.9 Active confirmed 467106549 Problem Obstructive sleep apnea G47.33 Active confirmed 92781193 Problem Morbid (severe) obesity due to excess calories E66 .01 Active confirmed 526758187 Problem Seasonal allergies J30.2 Active confirmed 4 24625457 Problem Essential hypertension I10 Active confirmed 40801045 Problem Type 2 diabetes mellitus wit h hyperglycemia, without long-term current use of insulin E11.65 Active confirmed 23204989 Problem ASCVD (arteriosclerotic cardiovascular disease) I2 5.10 Active confirmed 79768280 Problem Generalized anxiety disorder F41.1 Active confirme d 86156898 ALLERGIES Allergen (clinical drug ingredient) Drug/Non Drug Allergy do cumented on EMR Reaction Allergy Type Onset Date Status morphine Morphine Sulfate([facility] Code:[address]-96) Legs an d Arms swelling Drug Allergy Active Beans Unknown Non Drug Allergy Active ENCOUNTERS from 1975 to 2021-01-29 Encounter Location Date Provider Diagnosis [place] [address] [facility] [phone] [place] [address] Jan, Geeta Lee COVID U07.1 IMMUNIZATIONS Vaccine Route Administration Date Status Influenza [...] Notes Start Da te End Date Status Loratadine 10 MG Take 1 tablet by mouth once daily for 30 Active Losartan Potassium 100 MG Take 1 tablet by mouth once daily for 30 Active Trulicity 0.75 MG/0.5ML 1 injection Subcutaneous weekly for 28 Active Furosemide 40 MG Take 1 tablet by mouth once daily Orally Once a day for 30 days Active Steglatro 5 MG 1 tablet Orally Once a day for 30 Active Flonase Allergy Relief 50 MCG/ACT 1-2 spray in each no stril Nasally Once a day for 7 day(s) Jun, Active Test Strips - as directed topically three times daily for 30 D ays Apr, Active Alcohol Swabs 70 % as directed topically to fin umm prior to using lancet three times daily for 30 Days Apr, Active Lancets - as directed topically three times daily for 30 Days Apr, Active Carvedilol 25 MG Take 1 tablet by mouth twice daily for 30 Active Atorvastatin Calcium 80MG 1 tablet Orally Once a day for 30 Active Aspirin 81 MG 1 tablet Orally Once a day Apr, Active Aspirin Adult Low Strength 81 MG 1 tablet Orally Once a day for 30 da ys Active Tadalafil 20 MG 1 tablet Orally Once a day for 30 day(s) 0 August, Active metFORMIN HCl 1000 MG TAKE 1 TABLET BY MOUTH TWICE DAILY WITH A CIARAN L for 30 Active COMPRESSION STOCKINGS 20-30 mmHg as directed as directed daily f or 99 days Jan, Active Carvedilol 25 MG Take 1 tablet by mouth twice daily for 30 Active Fluoxetine HCl 40 MG Take 1 capsule by mouth once daily for 30 Active Bamlanivimab 700 MG/20ML as directed Intravenous Jan, Active Sildenafil Citrate 50 MG 1 tablet as needed Orally Once a day fo r 30 day(s) Oct, Active Glucometer as directed three times daily for 99 days Ja n, 2019 Active PROCEDURES No Information RESULTS No Results REASON FOR VISIT COVID antibody infusions MEDICAL (GENERAL) HISTORY Type Description Date Medical History CHF Medical History HTN Medical History DM Type 2 Medical History HI Surgical History Hernia x3 Hospitalization History Surgical Hospitalization History Colon prolapse Hospitalization History HI Goals Section No Information Health Concerns No Information MEDICAL EQUIPMENT No Information MENTAL STATUS No Information FUNCTIONAL STATUS No Information ASSESSMENTS Encounter Date Diagnosis Assessment Notes Treatment Notes Treatm ent Clinical Notes Jan, COVID (ICD-10 - U07.1) PLAN OF TREATMENT Medication Medication Name Sig Start Date Stop Date Carvedilol 25 MG Take 1 tablet by mouth twice daily for 30 Bamlanivimab 700 MG/20ML as directed Intravenous Jan, Loratadine 10 MG Take 1 tablet by mouth once daily for 30 Losartan Potassium 100 MG Take 1 tablet by mouth once daily for 30 metFORMIN HCl 1000 MG TAKE 1 TABLET BY MOUTH TWICE DAILY WITH A MEAL for 30 Fluoxetine HCl 40 MG Take 1 capsule by mouth once daily for 30 Next Appt Details Provider Name:Frandy Fernandez, 2021-01-30 04:00:00 PM, Rajwinder [address] , , [place], [address], Insurance Providers Payer Name Payer Address Payer Phone Insured Name Patient Relati onship to Insured Coverage Start Date Coverage End Date BCJANNY NAVARRETE PPO [id number] [facility] [employer] [facility] [place]Z [id number] SEBASTIAN ALBA self
--- OUTSIDE RECORDS SUMMARY | 2021-01-31 09:15 | CCD ---
Author Author [facility] Address Unknown Phone Unavailable Support Name Relationship Address Phone DELILAH MALHOTRA Next Of Kin [address] [place] [address] DELILAH MALHOTRA(PROXY) Next Of Kin [address] [place] [address] [place] Next Of Kin [address] [place] [address] [facility] [place] [address] Unavailable ANN-MARIE ALBA Next Of Kin [address] [place] [address] Ann-Marie Alba [address] [place] [address] Unavailable Re-disclosure Warning The records that you [...] is protected by Article 27-F of the [facility] Public Health law. If you continue you may have access to information: Regarding HIV / AIDS; Provided by facilities licensed or operated by the [facility] Office of Mental Health; or Provided by the [facility] Office for People With Developmental Disabilities. If such information is present, then the following [facility] mandated warning applies: This information has been [...] Description Data Source(s) Unknown Female Problem MEDENT ([facility], ) Unknown Female Problem MEDENT ([facility], ) Unknown Female Problem MEDENT ([facility], ) Unknown Female Problem MEDENT ([facility], ) Unknown Female Problem [facility]ENT ([facility], ) Unknown Female Problem [facility]ENT ([facility], ) Unknown Female Problem [facility]ENT ([facility], ) Unknown Female Problem [facility]ENT ([facility], ) Unknown Female Problem MEDENT ([facility], ) Unknown Female Problem MEDENT ([facility]) Encounters Encounter Providers Location Date Indications Data Source(s ) Unknown [address] [facility] [address] [address] 01/29/2021 12:00:00 AM EDT eCW1 (Replaced by [facility]) Unknown [address] [facility] [address] [address] 12/02/2020 12:00:00 AM EDT eCW1 (Replaced by [facility]) Unknown [address] [facility] [address] [address] 11/11/2020 12:00:00 AM EDT eCW1 (Replaced by [facility]) Unknown [address] [facility] [address] [address] 11/06/2020 12:00:00 AM EDT eCW1 (Replaced by [facility]) Unknown [address] [facility] [address] [address] 11/06/2020 12:00:00 AM EDT eCW1 (Replaced by [facility]) Immunizations Vaccine Date Status Description Data Source(s) COVID-19 VACCINE Pfizer 06/30/2020 12:00:00 AM EDT completed [facility] Vaccine Series Complete: YESThis Data wa s Submitted to [facility] Via [employer]. COVID-19 VACCINE Pfizer 06/09/2020 12:00:00 AM EST completed [facility] Vaccine Series Complete: NOThis Data was Submitted to [facility] [email or web address]. Medications Medication Brand Name Start Date Product Form Dose Route Admi nistrative Instructions Pharmacy Instructions Status Indications Reaction Description Data Source(s) Bamlanivimab 700 MG/20ML Bamlanivimab 700 MG/20ML 01/29/2021 12:00: 00 AM EDT active Bamlan[facility] 700 MG[facility] sildenafil 50 MG Oral Tablet Sildenafil Citrate 50 MG Silden afil Citrate 50 MG 11/07/2020 12:00:00 AM EDT 1.0 {tablet_as_needed} active Sildenafil Citrate 50 MG [facility] sildenafil 50 MG Oral Tablet Sildenafil Citrate 50 MG Silden afil Citrate 50 MG 11/07/2020 12:00:00 AM EDT 1.0 {tablet_as_needed} active Sildenafil Citrate 50 MG [facility]CW[facility]) sildenafil 50 MG Oral Tablet Sildenafil Citrate 50 MG Silden afil Citrate 50 MG 11/07/2020 12:00:00 AM EDT 1.0 {tablet_as_needed} active Sildenafil Citrate 50 MG [facility]CW[facility]) sildenafil 50 MG Oral Tablet Sildenafil Citrate 50 MG Silden afil Citrate 50 MG 11/07/2020 12:00:00 AM EDT 1.0 {tablet_as_needed} active Sildenafil Citrate 50 MG [facility]CW[facility] sildenafil 50 MG Oral Tablet Sildenafil Citrate 50 MG Silden afil Citrate 50 MG 11/07/2020 12:00:00 AM EDT 1.0 {tablet_as_needed} active Sildenafil Citrate 50 MG [facility]CW[facility] COMPRESSION STOCKINGS 20-30 mmHg UNK 01/15/2020 12:00:00 AM EDT active COMPRESSION STOCKINGS 20-30 mmHg [facility]) COMPRESSION STOCKINGS 20-30 mmHg UNK 01/15/2020 12:00:00 AM EDT active COMPRESSION STOCKINGS 20-30 mmHg [facility]CW[facility]) COMPRESSION STOCKINGS 20-30 mmHg UNK 01/15/2020 12:00:00 AM EDT active COMPRESSION STOCKINGS 20-30 mmHg [facility]) COMPRESSION STOCKINGS 20-30 mmHg UNK 01/15/2020 12:00:00 AM EDT active COMPRESSION STOCKINGS 20-30 mmHg [facility]) COMPRESSION STOCKINGS 20-30 mmHg UNK 01/15/2020 12:00:00 AM EDT active COMPRESSION STOCKINGS 20-30 mmHg [facility]CW[facility]) COMPRESSION STOCKINGS 20-30 mmHg UNK 01/15/2020 12:00:00 AM EDT active COMPRESSION STOCKINGS 20-30 mmHg [facility]) Insurance Providers Payer name Policy type / Coverage type Policy ID Covered green party ID Covered green party's relationship to ontiveros Policy Ontiveros Plan Information BS Jazz Trad/MX Commercial 802 [id number] Self 802 O BLUE [id number] SP [id number] [facility] BLUE [id number] SP [id number] [facility] B [id number] S [id number] [facility] Health Maintenance Organization (HMO) [id number] Self [id number] [facility] Health Maintenance Organization (O) 302 [id number] Self [id number] [employer] Healthy [place] ([place] Commercial [id number] Self BS [place] Commercial [id number] Self BCBS [place] O [id number] SP [id number] SELF PAY [id number] SP [id number] BCBS [place] O [id number] SP [id number] BCBS [place] PPO 302/307 [id number] SP [id number] Problems, Conditions, and Diagnoses No Information Surgeries/Procedures No Information Results No Information Social History Code Duration Value Status Description Data Source(s ) Smoking 12/02/2020 12:00:00 AM EDT Never Smoker completed Never S moker [facility] Smoking 12/02/2020 12:00:00 AM EDT Never Smoker completed Never S moker [facility]) Smoking 01/22/2020 12:00:00 AM EDT Never Smoker completed Never S moker eCW[facility]) Smoking 01/22/2020 12:00:00 AM EDT Never Smoker completed Never S moker eCW1 [facility]) Smoking 01/22/2020 12:00:00 AM EDT Never Smoker completed Never S moker [facility]CW[facility]) Smoking 01/22/2020 12:00:00 AM EDT Never Smoker completed Never S moker eCW[facility] Patient Treatment Plan of Care Planned Activity Planned Date Details Description Data Source (s) Bamlanivimab 700 MG/20ML 01/29/2021 12:00:00 AM EDT [facility] sildenafil 50 MG Oral Tablet 11/07/2020 12:00:00 AM EDT [facility]CW[facility] sildenafil 50 MG Oral Tablet 11/07/2020 12:00:00 AM EDT eCW[facility] sildenafil 50 MG Oral Tablet 11/07/2020 12:00:00 AM EDT [facility]
--- OUTSIDE RECORDS SUMMARY | 2021-01-31 10:04 | CCD ---
Author Author [facility] Address Unknown Phone Unavailable Support Name Relationship Address Phone DELILAH MALHOTRA Next Of Kin [address] [place] [address] DELILAH MALHOTRA(PROXY) Next Of Kin [address] [place] [address] [place] Next Of Kin [address] [place] [address] [facility] [place] [address] Unavailable ANN-MARIE ALBA Next Of Kin [address] [place] [address] Ann-Marie Alba E[address] [place] [address] Unavailable Re-disclosure Warning The records that you [...] is protected by Article 27-F of the [facility] Public Health law. If you continue you may have access to information: Regarding HIV / AIDS; Provided by facilities licensed or operated by the [facility] Office of Mental Health; or Provided by the [facility] Office for People With Developmental Disabilities. If such information is present, then the following [facility] mandated warning applies: This information has [...] law may result in a fine or detention sentence or both. A general authorization for the release of medical or other information is NOT sufficient authorization for further disc losure. Family History Family Member Name Family Member Gender Family Member Status Date o f Status Description Data Source(s) Unknown Female Problem [facility]ENT ([facility], ) Unknown Female Problem [facility] ([facility], ) Unknown Female Problem [facility] ([facility], ) Unknown Female Problem [facility] ([facility], ) [facility] Female Problem [facility] ([facility], ) Unknown Female Problem [facility] ([facility], ) Unknown Female Problem [facility] ([facility], ) Unknown Female Problem [facility] ([facility], ) Unknown Female Problem [facility] ([facility], ) Unknown Female Problem MEDENT ([facility]) Encounters Encounter Providers Location Date Indications Data Source(s ) Unknown [address] [facility] [place] [address] 01/29/2021 12:00:00 AM EDT eCW1 ([facility]) Unknown [address] [facility] [place] [address] 12/02/2020 12:00:00 AM EDT eCW1 ([facility]) Unknown [address] [facility] [place] [address] 11/11/2020 12:00:00 AM EDT eCW1 ([facility]) Unknown [address] [facility] [address] [place] [address] 11/06/2020 12:00:00 AM EDT eCW1 ([facility]) Unknown [address] [facility] [place] [address] 11/06/2020 12:00:00 AM EDT eCW1 ([facility]) Immunizations Vaccine Date Status Description Data Source(s) COVID-19 VACCINE Pfizer 06/30/2020 12:00:00 AM EDT completed [facility] Vaccine Series Complete: YESThis Data wa s Submitted to [facility] Via [employer]. COVID-19 VACCINE Pfizer 06/09/2020 12:00:00 AM EST completed [facility] Vaccine Series Complete: NOThis Data was Submitted to [facility] Via [employer]. Medications Medication Brand Name Start Date Product Form Dose Route Admi nistrative Instructions Pharmacy Instructions Status Indications Reaction Description Data Source(s) Bamlanivimab 700 MG/20ML Bamlanivimab 700 MG/20ML 01/29/2021 12:00: 00 AM EDT active Bamlanivimab 700 MG/20ML [facility] sildenafil 50 MG [...] type / Coverage type Policy ID Covered libertarian ID Covered libertarian's relationship to ontiveros Policy [employer] Plan Information BS Jazz Tr[employer]/MX Commercial [id number] Self 802 O BLUE [id number] SP [id number] [facility] BLUE [id number] SP [id number] [facility] B [id number] S [id number] [facility] [employer] (HMO) [id number] Self [id number] [facility] [employer] (O) [id number] Self [id number] [employer] [place] Commercial [id number] Self BS [place] Commercial [id number] Self [employer] [place] O [id number] SP [id number] SELF PAY [id number] SP [id number] [employer]BS [place] O [id number] SP [id number] [employer] [place] PPO [id number] SP [id number] Problems, Conditions, and Diagnoses No Information Surgeries/Procedures No Information Results No Information Social History Code Duration Value Status Description Data Source(s ) Smoking 12/02/2020 12:00:00 AM EDT Never Smoker completed Never S moker [facility] Smoking 12/02/2020 12:00:00 AM EDT Never [...] 700 MG/20ML 01/29/2021 12:00:00 AM EDT [facility]) sildenafil 50 MG Oral Tablet 11/07/2020 12:00:00 AM EDT [facility]) sildenafil 50 MG Oral Tablet 11/07/2020 12:00:00 AM EDT eCW[facility]) sildenafil 50 MG Oral Tablet 11/07/2020 12:00:00 AM EDT eCW1 [facility])
[2021-01-31] MEDS ORDERED: CARVedilol 12.5 MG TAB PO ONE (10:15)
[2021-01-31] MEDS ORDERED: LOSARTAN 50MG TABLET PO ONE (10:15)
[2021-01-31 10:25] VITALS: BP 232/117
[2021-01-31 12:09] VITALS: BP 173/96
== END 2021-01-31 12:16 | disposition home or self-care (01) ==
LOC: M ED 09:08
DX: U07.1 COVID-19 (principal); I10 Essential (primary) hypertension; Z79.899 Other long term (current) drug therapy; Z91.018 Allergy to other foods; Z88.5 Allergy status to narcotic agent

== ENCOUNTER → 2021-03-18 | Outpatient (CLI) | payer BC ==
[2021-03-18 11:01] LABS: HEMATOCRIT 46.6 % (42.0-52.0); HEMOGLOBIN 15.5 g/dl (13.5-17.5); MEAN CORPUSCULAR HEMOGLOBIN 30.6 pg (27.0-33.0); MEAN CORPUSCULAR HGB CONC 33.3 g/dl (32.0-36.5); MEAN CORPUSCULAR VOLUME 92.1 fl (80.0-96.0); PLATELET COUNT, AUTOMATED 285 10^3/uL (150-450); RED BLOOD COUNT 5.06 10^6/uL (4.30-6.10); WHITE BLOOD COUNT 9.5 10^3/uL (4.0-10.0)
[2021-03-18 11:32] LABS: ALBUMIN 3.7 GM/DL (3.2-5.2); ALT/SGPT 68 U/L (12-78); BILIRUBIN,TOTAL 0.6 MG/DL (0.2-1.0); BLOOD UREA NITROGEN 23 MG/DL (7-18); CALCIUM LEVEL 9.9 MG/DL (8.5-10.1); CARBON DIOXIDE LEVEL 31 MEQ/L (21-32); CHLORIDE LEVEL 98 MEQ/L (98-107); CHOLESTEROL LEVEL 184 MG/DL (<200); CHOLESTEROL RISK RATIO 4.487 (<5); CREATININE FOR GFR 0.93 MG/DL (0.70-1.30); GLOMERULAR FILTRATION RATE > 60.0 (>60); GLUCOSE, FASTING 297 MG/DL (70-100); HDL CHOLESTEROL 41 MG/DL (>40); LDL CHOLESTEROL 102 MG/DL (<100); NON-HDL-C 143 MG/DL; POTASSIUM SERUM 4.9 MEQ/L (3.5-5.1); SODIUM LEVEL 136 MEQ/L (136-145); TRIGLYCERIDES LEVEL 205 MG/DL (<150)
[2021-03-18 11:53] LABS: HEMOGLOBIN A1c 10.8 %
[2021-03-18 11:55] LABS: MAU/CREAT RATIO 549.2 MCG/MG (0.0-30.0)
[2021-03-18 13:58] LABS: HEPATITIS C VIRUS ABY INDEX 0.1 INDEX (<0.8)
[2021-03-18 13:59] LABS: HIV 1&2 SCREEN CENTAUR NEGATIVE (NEGATIVE)
== END ==
LOC: M PLALAB 09:53
PROVIDERS: ATTEND Student in an Organized Health Care Education/Training Program
DX: E11.65 Type 2 diabetes mellitus with hyperglycemia (principal)

== ENCOUNTER 2022-02-25 17:55 | Emergency (ER) | payer BC ==
[~2022-02-25 17:55] MED LIST changes: +LOSA100T45 PO; -LOSA100T50 PO
[2022-02-25] MEDS ORDERED: SUCCINYLCHOLINE 100 MG/5 ML SYRINGE (J0330) ONE (17:56)
[2022-02-25] MEDS ORDERED: EPINEPHrine 1MG/10ML SYRINGE 1.5IN ONE (17:56)
[2022-02-25] MEDS ORDERED: ETOMIDATE INJ 20MG/10ML VIAL ONE (17:56)
[2022-02-25 19:43] LABS: RSV AMPLIFICATION NEGATIVE (NEGATIVE)
== END 2022-02-25 21:18 | disposition expired ==
LOC: M ED 17:55
DX: I46.9 Cardiac arrest, cause unspecified (principal); E11.9 Type 2 diabetes mellitus without complications; J45.909 Unspecified asthma, uncomplicated; Z86.79 Personal history of other diseases of the circulatory system; Z88.5 Allergy status to narcotic agent; Z91.02 Food additives allergy status; Z79.51 Long term (current) use of inhaled steroids; Z79.4 Long term (current) use of insulin; Z79.811 Long term (current) use of aromatase inhibitors; Z79.899 Other long term (current) drug therapy
CPT/HCPCS: 31500; 87631; 99284; J0171; J0330